=== PATIENT | male | born 1960 | race Caucasian/White ===

== ENCOUNTER → 2016-12-26 | Day surgery (SDC) | payer BC ==
[~2016-12-26] MED LIST: ASPIR; FENTANYL PF 100 MCG/2 ML VIAL. IV PRN; HYDROMORPHONE 2 MG/ML VIAL. IV PRN; INSU100C SQ; INSU100V13 SQ; IV RINGERS,LACTATED 1000ML 1,000 ML IV SCH; LIDOCAINE 1% 1 ML SYRINGE. ID PRN; LIDOCAINE 2% PF Vial for OR 5 ML VIAL. ONE; MORPHINE SULFATE 2 MG/ML DISP.SYRIN. IV PRN; ONDANSETRON PF 4 MG/2 ML VIAL. IV PRN; PROCHLORPERAZINE 10 MG/2 ML VIAL. IV PRN; PROPOFOL 40 ML IV ONE
[2016-12-26 07:59] VITALS: BP 122/72
== END ==
LOC: ENDOS 05:54
PROVIDERS: ATTEND Internal Medicine Gastroenterology
DX: K64.0 First degree hemorrhoids (principal); E11.9 Type 2 diabetes mellitus without complications; F17.210 Nicotine dependence, cigarettes, uncomplicated; Z72.89 Other problems related to lifestyle; Z79.82 Long term (current) use of aspirin; Z90.49 Acquired absence of other specified parts of digestive tract
CPT/HCPCS: 45378; 82947; J2704

== ENCOUNTER 2017-04-19 08:08 | Inpatient (IN) | payer BC ==
[~2017-04-19] VITALS: Ht 167.6 cm; Wt 53.1 kg
[2017-04-19] VITALS (17 sets, daily range): BP systolic 116–153; BP diastolic 53–78
[~2017-04-19 08:08] MED LIST changes: -FENTANYL PF 100 MCG/2 ML VIAL. IV PRN; -HYDROMORPHONE 2 MG/ML VIAL. IV PRN; -IV RINGERS,LACTATED 1000ML 1,000 ML IV SCH; -LIDOCAINE 1% 1 ML SYRINGE. ID PRN; -LIDOCAINE 2% PF Vial for OR 5 ML VIAL. ONE; -MORPHINE SULFATE 2 MG/ML DISP.SYRIN. IV PRN; -ONDANSETRON PF 4 MG/2 ML VIAL. IV PRN; -PROCHLORPERAZINE 10 MG/2 ML VIAL. IV PRN; -PROPOFOL 40 ML IV ONE
[2017-04-19] MEDS: PANTOPRAZOLE SODIUM IV 80 MG in IV NORMAL SALINE 100ML 100 ML IV SCH ×2 (09:15→16:56)
[2017-04-19] MEDS ORDERED: IV NORMAL SALINE 1000ML BAG 1,000 ML IV SCH (09:30)
[2017-04-19] MEDS ORDERED: INSULIN REGULAR VIAL 150 UNIT in 0.9 % SODIUM CHLORIDE 150ML 150 ML IV PRN (09:30)
[2017-04-19] MEDS ORDERED: POTASSIUM CHLORIDE 10MEQ 100 ML IV PRN ×3 (09:30)
[2017-04-19 10:00] LABS: BASE EXCESS COOX -20 mmol/L (-3-3); CARBON MONOXIDE 0.3 % (0.0-1.9); HCO3 COOX 7 mmol/L (21-28); METHEMOGLOBIN 0.4 % (0.0-1.9); OXYHEMOGLOBIN 95.1 %; PCO2 COOX 22 mmHg (35-46); PO2 COOX 91 mmHg (75-108); SAT O2 COOX 96 % (92-99); TOTAL HEMOGLOBIN 14.7 g/dL
[2017-04-19 10:01] LABS: PH COOX 7.15 (7.35-7.45)
[2017-04-19 10:02] LABS: FIO2 COOX 21%
--- NOTE | 2017-04-19 10:08 | EKG ---
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
[2017-04-19] MEDS ORDERED: INSU100V13 SQ (10:27)
[2017-04-19] MEDS ORDERED: ASPI-482 PO (10:27)
[2017-04-19] MEDS ORDERED: INSU100C SQ (10:27)
--- NOTE | 2017-04-19 10:42 | PDOC2 ---
CONSULT Date of Consult Date of Consult DATE: 04/19/17 TIME: 10:42 Reason for Consult Reason for Consult: Chest pain Referring Physician Referring Physician: Dr. Villagran Identification/Chief Complaint Chief Complaint Nausea, vomiting and chest pain Source Source: Caregiver, Chart review History of Present Illness Reason for Visit: 56-year-old male initially presented to [facility] for nausea, vomiting and diarrhea and transferred to [facility] for further management. We have been consulted for chest pain. Patient is presently very somnolent probably from sedation and hence cannot give any meaningful history. Poor his spouse, patient started having nausea and vomiting yesterday morning and later in the day started complaining of chest pain not related to exertion. He does not have any previous history of coronary artery disease. He did not have any palpitations or syncope. Past Medical History Past Medical History Diabetes mellitus Past Surgical History Past Surgical History Appendectomy Family History Family History Negative for premature coronary artery disease Social History Social History Patient smokes one pack of cigarettes daily and has history of moderate intake of alcohol on a regular basis. No history of drug abuse. Current Medications Current Medications Current Medications Sodium Chloride 1,000 ml @ 250 mls/hr Q4H IV Last administered on 04/19/17 09 :44; Start 04/19/17 at 09:30 Insulin Human Regular 150 unit/ Sodium Chloride 151.5 ml @ 0 mls/hr CONT PRN PRN IV PER PROTOCOL Last administered on 04/19/17 09:44; Start 04/19/17 at 09: 30 Potassium Chloride 100 ml @ 100 mls/hr PRN Q1HR PRN IV SEE COMMENTS; Start at 09:30 Potassium Chloride 100 ml @ 100 mls/hr PRN Q1HR PRN IV SEE COMMENTS; Start at 09:30 Potassium Chloride 100 ml @ 100 mls/hr PRN Q1HR PRN IV SEE COMMENTS; Start at 09:30 Pantoprazole Sodium 80 mg/ Sodium Chloride 100 ml @ 10 mls/hr Q10H IV Last administered on 04/19/17 09:15; Start 04/19/17 at 09:45 Active Scripts Active Reported Aspir 81 (Aspirin) 81 Mg Tablet. 1 Tab PO DAILY Humalog (Insulin Lispro) 100 Unit/1 Ml Cartridge 3-4 Unit SQ DAILYWLUN Levemir (Insulin Detemir) 100 Unit/1 Ml Vial 22 Unit SQ QHS Allergies Allergies: Coded Allergies: pseudoephedrine (Verified Allergy, Severe, 04/19/17) facial swelling ROS Review of System Cannot be obtained since patient is not a good historian at this time from sedation Physical Exam General: Other (somnolent) HEENT: Atraumatic, PERRLA Lungs: Clear to auscultation Heart: Regular rate, Rubs (probable pericardial rub) Abdomen: Soft, No tenderness Extremities: No edema Labs Labs Laboratory Tests Test 04/19/17 09:27 04/19/17 09:38 O2 Saturation 96 % (92-99) Arterial Blood pH 7.15 (7.35-7.45) Arterial Blood pCO2 at Patient Temp 22 mmHg (35-46) Arterial Blood pO2 at Patient Temp 91 mmHg (75-108) Arterial Blood HCO3 7 mmol/L (21-28) Arterial Blood Base Excess -20 mmol/L (-3-3) Oxyhemoglobin 95.1 % Methemoglobin 0.4 % (0.0-1.9) Carbon Monoxide, Quantitative 0.3 % (0.0-1.9) FiO2 21% Glucose (Fingerstick) 402 mg/dL (70-99) Laboratory Tests Test 04/19/17 09:27 04/19/17 09:38 O2 Saturation 96 % (92-99) Arterial Blood pH 7.15 (7.35-7.45) Arterial Blood pCO2 at Patient Temp 22 mmHg (35-46) Arterial Blood pO2 at Patient Temp 91 mmHg (75-108) Arterial Blood HCO3 7 mmol/L (21-28) Arterial Blood Base Excess -20 mmol/L (-3-3) Oxyhemoglobin 95.1 % Methemoglobin 0.4 % (0.0-1.9) Carbon Monoxide, Quantitative 0.3 % (0.0-1.9) FiO2 21% Glucose (Fingerstick) 402 mg/dL (70-99) Assessment/Plan Assessment/Plan 1. Chest pain with atypical features, most probably GI etiology. Troponin levels indeterminate. Abnormal EKG with peaked T waves most probably secondary to hyperkalemia. Doubt ACS. We will check 2-D echo to assess LV systolic function and rule out wall motion abnormalities. We will also rule out pericardial effusion due to pericardial rub heard on auscultation. Further ischemic workup in the formal stress test could be considered as an outpatient. 2. Diabetic ketoacidosis, possible acute pancreatitis: Workup and treatment per GI team 3. Hyperkalemia, acute renal insufficiency: per IM Thank you for your consultation TALIB PEREZ MD April 19, 2017 10:42
[2017-04-19 10:49] LABS: BILIRUBIN,URINE NEGATIVE (NEG); GLUCOSE,URINE >=1000 mg/dL (NEG); NITRITE,URINE NEGATIVE (NEG); PROTEIN,URINE NEGATIVE (NEG-TRACE); UROBILINOGEN,URINE 0.2 mg/dL (0.2 mg/dL)
[2017-04-19 10:50] LABS: BASO # 0.1 x10^3/uL (0.0-0.2); BASO % 1 % (0-3); EOS % 0 % (0-3); HEMOGLOBIN 14.6 g/dL (13.0-17.5); LYMPH # 0.9 x10^3/uL (1.0-4.8); LYMPH % 4 % (24-48); MEAN CORPUSCULAR HEMOGLOBIN 34 pg (25-35); MEAN CORPUSCULAR HGB CONC 33 g/dL (31-37); MEAN CORPUSCULAR VOLUME 103 fL (79-100); MONO % 3 % (0-9); NEUT % 93 % (31-73); PLATELET COUNT 261 x10^3/uL (140-400); RED BLOOD COUNT 4.28 x10^6/uL (4.30-5.70); RED CELL DISTRIBUTION WIDTH 13.7 % (11.5-14.5); WHITE BLOOD COUNT 21.8 x10^3/uL (4.0-11.0)
--- NOTE | 2017-04-19 11:00 | PDOC2 ---
CONSULT Date of Consult Date of Consult DATE: 04/19/17 TIME: 10:48 Reason for Consult Reason for Consult: "Hematemesis" Referring Physician Referring Physician: Dr. Villagran Source Source: Caregiver, Chart review History of Present Illness Reason for Visit: 56 y/o male transferred from [facility] where presented in DKA. There had "pink-tinged " emesis which was gastroccult positive. Clots or coffee-ground emesis not described there, here or at home by who gives history as patient is somnolent and not answering questions currently. No prior issues with heartburn , dysphagia, PUD, GB, liver or pancreatic issues. Smoker. Daily alcohol, ~ 3oz. Daily ASA 81mg/rare NSAIDS. Chronic issues with constipation; colonoscopy by Dr. Gay earlier this year historically normal. No diarrhea, overt bleeding. Ongoing weight loss, though suspect blood sugar control is poor. Unable to obtain GI family history. Past Medical History Endocrine: Diabetes (type I/insulin-dependent) Past Surgical History Past Surgical History: Appendectomy Family History Family History Not obtainable from patient. Social History Social History Smokes, drinks daily. Negative tox screen at [facility]. Current Medications Current Medications Current Medications Sodium Chloride 1,000 ml @ 250 mls/hr Q4H IV Last administered on 04/19/17 09 :44; Start 04/19/17 at 09:30 Insulin Human Regular 150 unit/ Sodium Chloride 151.5 ml @ 0 mls/hr CONT PRN PRN IV PER PROTOCOL Last administered on 04/19/17 09:44; Start 04/19/17 at 09: 30 Potassium Chloride 100 ml @ 100 mls/hr PRN Q1HR PRN IV SEE COMMENTS; Start at 09:30 Potassium Chloride 100 ml @ 100 mls/hr PRN Q1HR PRN IV SEE COMMENTS; Start at 09:30 Potassium Chloride 100 ml @ 100 mls/hr PRN Q1HR PRN IV SEE COMMENTS; Start at 09:30 Pantoprazole Sodium 80 mg/ Sodium Chloride 100 ml @ 10 mls/hr Q10H IV Last administered on 04/19/17 09:15; Start 04/19/17 at 09:45 Active Scripts Active Reported Aspir 81 (Aspirin) 81 Mg Tablet. 1 Tab PO DAILY Humalog (Insulin Lispro) 100 Unit/1 Ml Cartridge 3-4 Unit SQ DAILYWLUN Levemir (Insulin Detemir) 100 Unit/1 Ml Vial 22 Unit SQ QHS Allergies Allergies: Coded Allergies: No Known Drug Allergies (Unverified , 12/26/16) ROS Review of System Not obtainable from patient due to mental status. Physical Exam General: Other (Somnolent/non-verbal currently) Lungs: Clear to auscultation Heart: Regular rate, Normal S1, Normal S2, No murmurs Abdomen: Normal bowel sounds, Soft, No hepatosplenomegaly, No masses, Other ( grimaces with epigastric palpation) Extremities: No cyanosis, No edema Skin: No significant lesion Neuro: Strength at 5/5 X4 ext, Normal tone, Sensation intact, Cranial nerves 3- 12 NL, Reflexes 2+ Psych/Mental Status: Other (arouse, but non-verbal) MUSCULOSKELETAL: No deformity, No swelling Labs Labs Laboratory Tests Test 04/19/17 09:27 04/19/17 09:38 O2 Saturation 96 % (92-99) Arterial Blood pH 7.15 (7.35-7.45) Arterial Blood pCO2 at Patient Temp 22 mmHg (35-46) Arterial Blood pO2 at Patient Temp 91 mmHg (75-108) Arterial Blood HCO3 7 mmol/L (21-28) Arterial Blood Base Excess -20 mmol/L (-3-3) Oxyhemoglobin 95.1 % Methemoglobin 0.4 % (0.0-1.9) Carbon Monoxide, Quantitative 0.3 % (0.0-1.9) FiO2 21% Glucose (Fingerstick) 402 mg/dL (70-99) Laboratory Tests Test 04/19/17 09:27 04/19/17 09:38 O2 Saturation 96 % (92-99) Arterial Blood pH 7.15 (7.35-7.45) Arterial Blood pCO2 at Patient Temp 22 mmHg (35-46) Arterial Blood pO2 at Patient Temp 91 mmHg (75-108) Arterial Blood HCO3 7 mmol/L (21-28) Arterial Blood Base Excess -20 mmol/L (-3-3) Oxyhemoglobin 95.1 % Methemoglobin 0.4 % (0.0-1.9) Carbon Monoxide, Quantitative 0.3 % (0.0-1.9) FiO2 21% Glucose (Fingerstick) 402 mg/dL (70-99) Assessment/Plan Assessment/Plan IMP: 1. "Hematemesis". Historically seems insignificant. Labs at [facility] not suggestive of meaningful bleed either. Probably induced by repeated emesis/ retching, but not enough to consider even M-W syndrome. 2. Chronic constipation/negative recent colonoscopy--likely idiopathic. REC: 1. Continue PPI 2. Treat DKA 3. Observe for any meaningful bleeding. Other pending. Thank you for allowing me to assist in the care of this patient. Please call if questions. SOFIA STALLWORTH MD April 19, 2017 10:59
[2017-04-19 11:06] LABS: ALBUMIN 3.9 g/dL (3.4-5.0); CALCIUM 8.6 mg/dL (8.5-10.1); CREATININE 1.7 mg/dL (0.7-1.3); DIRECT BILIRUBIN 0.2 mg/dL (0.0-0.2); GFR 42.1; MAGNESIUM 2.5 mg/dL (1.8-2.4); TOTAL BILIRUBIN 0.6 mg/dL (0.2-1.0); TOTAL PROTEIN 7.5 g/dL (6.4-8.2)
[2017-04-19 11:13] LABS: BACTERIA,URINE 0 /HPF (0-FEW); RBC,URINE OCC /HPF (0-2); SQUAMOUS EPITHELIAL CELL,UR FEW /LPF; WBC,URINE 0 /HPF (0-4)
[2017-04-19 12:47] LABS: PLT ESTIMATE ADEQUATE (ADEQUATE)
[2017-04-19 12:50] LABS: CREATINE KINASE 38 U/L (39-308)
[2017-04-19] MEDS: IV DEXTROSE 5% - 0.9 % NACL 1,000 ML IV SCH ×3 (13:12→21:00)
[2017-04-19] MEDS ORDERED: ENOXAPARIN 40 MG/0.4 ML SYRINGE. SQ SCH (14:00)
[2017-04-19] MEDS ORDERED: MORPHINE SULFATE 2 MG/ML DISP.SYRIN. IV PRN (14:00)
[2017-04-19] MEDS ORDERED: ACETAMINOPHEN 325 MG TABLET. PO PRN (14:00)
[2017-04-19] MEDS ORDERED: ONDANSETRON PF 4 MG/2 ML VIAL. IV PRN (14:00)
[2017-04-19] MEDS ORDERED: traMADol 50 MG TABLET PO PRN (14:00)
[2017-04-19] MEDS ORDERED: hydrALAZINE 20 MG/ML VIAL. IVP PRN (14:00)
[2017-04-19] MEDS ORDERED: DOCUSATE SODIUM 100 MG CAPSULE. PO PRN (14:00)
--- NOTE | 2017-04-19 14:01 | PDOC1 ---
History and Physical Date of Admission Date of Admission 04/19/17 Identification/Chief Complaint Chief Complaint abd pain, N/V Problems: Source Source: Caregiver, Chart review History of Present Illness History of Present Illness 56yo M, dm2 ON insulin, was sent from [facility] for pancreatitis, DKA. pT IS mild lethargic now, contribute history. She said pt takes insulin daily, not sure finger stick tho.Pt started to feel abd pain, N/V many times yesterday, the vomitted fluid became pinkish later. They came to [facility] today, pt was found DKA, PANCREAtitis, metabolic acidosis, sent here. Pt got one dose ativan in [facility]. He also c/o some chest pain in [facility]. PT drinks 6ounces of vidka daily. Pt is not willing to quit smoking or drinking as per , no h/o gallstone or pancreatitis, but has some " stomach problem" wo details. Past Medical History Endocrine: Diabetes (type I/insulin-dependent) Past Surgical History Past Surgical History: Appendectomy Family History Family History: Diabetes Social History Smoke: <1 pack per day ALCOHOL: heavy Drugs: None Current Medications Current Medications Current Medications Medications (Trade) Dose Ordered Sig/Lilly Start Time Stop Time Status Last Admin Dose Admin Dextrose/Sodium Chloride 1,000 ml @ 250 mls/hr Q4H 04/19/17 13:00 04/19/17 13:12 250 MLS/HR Insulin Human Regular 150 unit/ Sodium Chloride 151.5 ml @ 0 mls/hr CONT PRN PRN 04/19/17 09:30 04/19/17 09:44 6.8 MLS/HR Pantoprazole Sodium 80 mg/ Sodium Chloride 100 ml @ 10 mls/hr Q10H 04/19/17 09:45 04/19/17 09:15 10 MLS/HR Potassium Chloride 100 ml @ 100 mls/hr PRN Q1HR PRN 04/19/17 09:30 Sodium Chloride 1,000 ml @ 250 mls/hr Q4H 04/19/17 09:30 04/19/17 12:59 DC 04/19/17 09:44 250 MLS/HR Allergies Allergies Allergies Coded Allergies Type Severity Reaction Last Updated Verified pseudoephedrine Allergy Severe 04/19/17 Yes ROS Review of System CONSTITUTIONAL: No fever or chills EYES: No recent changes SKIN: No rash or itching CARDIOVASCULAR: No chest pain, syncope, palpitations, or edema RESPIRATORY: No SOB or cough GASTROINTESTINAL: No nausea, vomiting or abdominal pain NEUROLOGICAL: No headaches or weakness ENDOCRINE: No cold or heat intolerance GENITOURINARY: No urgency or frequency of urination MUSCULOSKELETAL: No back pain or joint pain LYMPHATICS: No enlarged lymph nodes PSYCHIATRIC: No anxiety or depression Physical Exam Physical Exam GEN.: lethargic, arousable, answer some questions, aaox3, squeeze bl hands. HEENT: Head is normocephalic, atraumatic NECK: Supple. LUNGS: Clear to auscultation. HEART: RRR, S1, S2 present. Peripheral pulses intact ABDOMEN: Soft, nontender. Positive bowel sounds. EXTREMITIES: Without any cyanosis. NEUROLOGIC: Normal speech, normal tone PSYCHIATRIC: Normal affect, normal mood. SKIN: No ulcerations Vitals Vitals Vital Signs Date Time Temp Pulse Resp B/P (MAP) Pulse Ox O2 Delivery O2 Flow Rate FiO2 04/19/17 13:00 98 13 151/70 (97) 99 Room Air 04/19/17 09:15 97.5 97.5 Labs Labs Laboratory Tests Test 04/19/17 09:27 04/19/17 09:38 04/19/17 10:25 04/19/17 10:30 O2 Saturation 96 % (92-99) Arterial Blood pH 7.15 (7.35-7.45) Arterial Blood pCO2 at Patient Temp 22 mmHg (35-46) Arterial Blood pO2 at Patient Temp 91 mmHg (75-108) Arterial Blood HCO3 7 mmol/L (21-28) Arterial Blood Base Excess -20 mmol/L (-3-3) Oxyhemoglobin 95.1 % Methemoglobin 0.4 % (0.0-1.9) Carbon Monoxide, Quantitative 0.3 % (0.0-1.9) FiO2 21% Glucose (Fingerstick) 402 mg/dL (70-99) Urine Collection Type Unknown Urine Color Yellow Urine Clarity Clear Urine pH 5.0 Urine Specific [place] 1.025 Urine Protein Negative mg/dL (NEG-TRACE) Urine Glucose (UA) >=1000 mg/dL (NEG) Urine Ketones (Stick) >=80 mg/dL (NEG) Urine Blood Negative (NEG) Urine Nitrite Negative (NEG) Urine Bilirubin Negative (NEG) Urine Urobilinogen Dipstick 0.2 mg/dL (0.2 mg/dL) Urine Leukocyte Esterase Negative (NEG) Urine RBC Occ /HPF (0-2) Urine WBC 0 /HPF (0-4) Urine Squamous Epithelial Cells Few /LPF Urine Bacteria 0 /HPF (0-FEW) White Blood Count 21.8 x10^3/uL (4.0-11.0) Red Blood Count 4.28 x10^6/uL (4.30-5.70) Hemoglobin 14.6 g/dL (13.0-17.5) Hematocrit 44.0 % (39.0-53.0) Mean Corpuscular Volume 103 fL (79-100) Mean Corpuscular Hemoglobin 34 pg (25-35) Mean Corpuscular Hemoglobin Concent 33 g/dL (31-37) Red Cell Distribution Width 13.7 % (11.5-14.5) Platelet Count 261 x10^3/uL (140-400) Neutrophils (%) (Auto) 93 % (31-73) Lymphocytes (%) (Auto) 4 % (24-48) Monocytes (%) (Auto) 3 % (0-9) Eosinophils (%) (Auto) 0 % (0-3) Basophils (%) (Auto) 1 % (0-3) Neutrophils # (Auto) 20.2 x10^3uL (1.8-7.7) Lymphocytes # (Auto) 0.9 x10^3/uL (1.0-4.8) Monocytes # (Auto) 0.5 x10^3/uL (0.0-1.1) Eosinophils # (Auto) 0.0 x10^3/uL (0.0-0.7) Basophils # (Auto) 0.1 x10^3/uL (0.0-0.2) Segmented Neutrophils % 85 % (35-66) Lymphocytes % 11 % (24-48) Monocytes % 4 % (0-10) Platelet Estimate Adequate (ADEQUATE) Sodium Level 137 mmol/L (136-145) Potassium Level 5.0 mmol/L (3.5-5.1) Chloride Level 100 mmol/L (98-107) Carbon Dioxide Level 9 mmol/L (21-32) Anion Gap 28 (6-14) Blood Urea Nitrogen 34 mg/dL (8-26) Creatinine 1.7 mg/dL (0.7-1.3) Estimated GFR (Cockcroft-Gault) 42.1 Glucose Level 428 mg/dL (70-99) Calcium Level 8.6 mg/dL (8.5-10.1) Phosphorus Level 4.0 mg/dL (2.6-4.7) Magnesium Level 2.5 mg/dL (1.8-2.4) Total Bilirubin 0.6 mg/dL (0.2-1.0) Direct Bilirubin 0.2 mg/dL (0.0-0.2) Aspartate Amino Transf (AST/SGOT) 17 U/L (15-37) Alanine Aminotransferase (ALT/SGPT) 23 U/L (16-63) Alkaline Phosphatase 104 U/L (46-116) Total Protein 7.5 g/dL (6.4-8.2) Albumin 3.9 g/dL (3.4-5.0) Amylase Level 549 U/L (25-115) Lipase 2850 U/L (73-393) Test 04/19/17 10:46 04/19/17 12:05 Glucose (Fingerstick) 389 mg/dL (70-99) Creatine Kinase 38 U/L (39-308) Creatine Kinase MB (Mass) 1.0 ng/mL (0.0-3.6) Creatine Kinase MB Relative Index % (0-4) Troponin I Quantitative < 0.017 ng/mL (0.000-0.055) Laboratory Tests Test 04/19/17 09:27 04/19/17 09:38 04/19/17 10:25 04/19/17 10:30 O2 Saturation 96 % (92-99) Arterial Blood pH 7.15 (7.35-7.45) Arterial Blood pCO2 at Patient Temp 22 mmHg (35-46) Arterial Blood pO2 at Patient Temp 91 mmHg (75-108) Arterial Blood HCO3 7 mmol/L (21-28) Arterial Blood Base Excess -20 mmol/L (-3-3) Oxyhemoglobin 95.1 % Methemoglobin 0.4 % (0.0-1.9) Carbon Monoxide, Quantitative 0.3 % (0.0-1.9) FiO2 21% Glucose (Fingerstick) 402 mg/dL (70-99) Urine Collection Type Unknown Urine Color Yellow Urine Clarity Clear Urine pH 5.0 Urine Specific [place] 1.025 Urine Protein Negative mg/dL (NEG-TRACE) Urine Glucose (UA) >=1000 mg/dL (NEG) Urine Ketones (Stick) >=80 mg/dL (NEG) Urine Blood Negative (NEG) Urine Nitrite Negative (NEG) Urine Bilirubin Negative (NEG) Urine Urobilinogen Dipstick 0.2 mg/dL (0.2 mg/dL) Urine Leukocyte Esterase Negative (NEG) Urine RBC Occ /HPF (0-2) Urine WBC 0 /HPF (0-4) Urine Squamous Epithelial Cells Few /LPF Urine Bacteria 0 /HPF (0-FEW) White Blood Count 21.8 x10^3/uL (4.0-11.0) Red Blood Count 4.28 x10^6/uL (4.30-5.70) Hemoglobin 14.6 g/dL (13.0-17.5) Hematocrit 44.0 % (39.0-53.0) Mean Corpuscular Volume 103 fL (79-100) Mean Corpuscular Hemoglobin 34 pg (25-35) Mean Corpuscular Hemoglobin Concent 33 g/dL (31-37) Red Cell Distribution Width 13.7 % (11.5-14.5) Platelet Count 261 x10^3/uL (140-400) Neutrophils (%) (Auto) 93 % (31-73) Lymphocytes (%) (Auto) 4 % (24-48) Monocytes (%) (Auto) 3 % (0-9) Eosinophils (%) (Auto) 0 % (0-3) Basophils (%) (Auto) 1 % (0-3) Neutrophils # (Auto) 20.2 x10^3uL (1.8-7.7) Lymphocytes # (Auto) 0.9 x10^3/uL (1.0-4.8) Monocytes # (Auto) 0.5 x10^3/uL (0.0-1.1) Eosinophils # (Auto) 0.0 x10^3/uL (0.0-0.7) Basophils # (Auto) 0.1 x10^3/uL (0.0-0.2) Segmented Neutrophils % 85 % (35-66) Lymphocytes % 11 % (24-48) Monocytes % 4 % (0-10) Platelet Estimate Adequate (ADEQUATE) Sodium Level 137 mmol/L (136-145) Potassium Level 5.0 mmol/L (3.5-5.1) Chloride Level 100 mmol/L (98-107) Carbon Dioxide Level 9 mmol/L (21-32) Anion Gap 28 (6-14) Blood Urea Nitrogen 34 mg/dL (8-26) Creatinine 1.7 mg/dL (0.7-1.3) Estimated GFR (Cockcroft-Gault) 42.1 Glucose Level 428 mg/dL (70-99) Calcium Level 8.6 mg/dL (8.5-10.1) Phosphorus Level 4.0 mg/dL (2.6-4.7) Magnesium Level 2.5 mg/dL (1.8-2.4) Total Bilirubin 0.6 mg/dL (0.2-1.0) Direct Bilirubin 0.2 mg/dL (0.0-0.2) Aspartate Amino Transf (AST/SGOT) 17 U/L (15-37) Alanine Aminotransferase (ALT/SGPT) 23 U/L (16-63) Alkaline Phosphatase 104 U/L (46-116) Total Protein 7.5 g/dL (6.4-8.2) Albumin 3.9 g/dL (3.4-5.0) Amylase Level 549 U/L (25-115) Lipase 2850 U/L (73-393) Test 04/19/17 10:46 04/19/17 12:05 Glucose (Fingerstick) 389 mg/dL (70-99) Creatine Kinase 38 U/L (39-308) Creatine Kinase MB (Mass) 1.0 ng/mL (0.0-3.6) Creatine Kinase MB Relative Index % (0-4) Troponin I Quantitative < 0.017 ng/mL (0.000-0.055) VTE Prophylaxis Ordered VTE Prophylaxis Devices: Yes VTE Pharmacological Prophylaxi: Yes Assessment/Plan Assessment/Plan 1. N/V, abd pain with pancreatitis, 2/2 ALCOHOL likely 2. DKA with 1 3. metabolic acidosis with 2 4. chest pain, 2/2 1 likely 5. ANITHA , vasomotor, dehydration 6. heavy drinker 7. tobaccoism 8. dm2 on insulin 9. possible GIB with N/V 10 . chronic constipation plan: GI, CARD consult echo as per card protonix ip as per card DKA protocol ICU care labs q4h talked to for 10min at bedside check hba1c check abd US critical care 40min FIDELINA VILA MD April 19, 2017 14:01
[2017-04-19 14:37] LABS: BARBITURATES NEG (NEG); BENZODIAZEPINES NEG (NEG); CANNABINOIDS NEG (NEG); COCAINE NEG (NEG); METHADONE NEG (NEG); OPIATES NEG (NEG); PHENCYCLIDINE NEG (NEG)
[2017-04-19 15:29] LABS: CALCIUM 8.4 mg/dL (8.5-10.1); CREATININE 1.4 mg/dL (0.7-1.3); GFR 52.6; MAGNESIUM 2.2 mg/dL (1.8-2.4); PHOSPHORUS 1.4 mg/dL (2.6-4.7)
[2017-04-19] MEDS ORDERED: SODIUM PHOSPHATE 15 MMOL in IV DEXTROSE 5% 250 ML IV ONE (16:00)
--- NOTE | 2017-04-19 16:32 | ACF ---
Admission Forms Criteria PANCREATITIS Clinical Indications for Admission to Inpatient Care (Place 'X' for any and all applicable criteria): Admission is indicated for 1 or more of the following (1)(2)(3)(4): [X]I. Acute pancreatitis[A] as indicated by 2 or MORE of the following: [X]a) Abdominal pain (eg, epigastric, left upper quadrant) [X]b) Serum amylase or serum lipase greater than 3 times the upper limit of normal [ ]c) Characteristic findings from abdominal imaging (eg, pancreatic inflammation, pancreatic necrosis, peripancreatic fluid collection)[B] [ ]II. Pancreatitis (acute or chronic ) requiring inpatient care as indicated by 1 or more of the following [ ]a) Inability to maintain oral hydration Hypoxemia [ ]b) Evidence of infection (eg, fever, peripancreatic abscess) [ ]c) Severe pain requiring acute inpatient management [ ]d) Hemodynamic instability [ ]e) Hypoxemia [ ]f) Acute renal failure [ ]g) Severe electrolyte abnormalities Extended stay beyond goal length of stay may be needed for (1)(11) [ ]a) Severe acute pancreatitis (10)(19) [ ]b) Persistent symptoms, ascites, or pleural effusion [ ]c) Abdominal compartment syndrome (10) [ ]d) Late complications [ ]e) Gallstones in gallbladder [ ]f) Acute renal failure (27) The original [facility] content created by [employer] has been revised. The portions of the content which have been revised are identified through the use of italic text or in bold,and [facility] has neither reviewed nor approved the modified material.All other unmodified content is copyright [facility] [employer]. Please see references footnoted in the original [facility] edition 2016 Admission Criteria Met?: Yes CARLOZ PAULINO April 19, 2017 16:32
[2017-04-19 18:36] LABS: CKMB MASS 0.8 ng/mL (0.0-3.6)
[2017-04-20] VITALS (15 sets, daily range): BP systolic 133–159; BP diastolic 69–83
[2017-04-20 00:38] LABS: CKMB MASS 0.6 ng/mL (0.0-3.6)
[2017-04-20] MEDS: IV DEXTROSE 5% - 0.9 % NACL 1,000 ML IV SCH ×2 (01:00→05:39)
[2017-04-20 01:12] LABS: CALCIUM 7.9 mg/dL (8.5-10.1); CREATININE 0.9 mg/dL (0.7-1.3); GFR 87.6; MAGNESIUM 2.1 mg/dL (1.8-2.4); PHOSPHORUS 2.7 mg/dL (2.6-4.7); POTASSIUM 3.2 mmol/L (3.5-5.1)
[2017-04-20] MEDS: POTASSIUM CHLORIDE 10MEQ 100 ML IV SCH ×4 (02:55→05:38)
[2017-04-20] MEDS: PANTOPRAZOLE SODIUM IV 80 MG in IV NORMAL SALINE 100ML 100 ML IV SCH (02:55)
[2017-04-20 06:12] LABS: BASO # 0.1 x10^3/uL (0.0-0.2); BASO % 1 % (0-3); EOS % 0 % (0-3); HEMATOCRIT 38.5 % (39.0-53.0); HEMOGLOBIN 12.7 g/dL (13.0-17.5); LYMPH # 1.3 x10^3/uL (1.0-4.8); LYMPH % 9 % (24-48); MEAN CORPUSCULAR HEMOGLOBIN 33 pg (25-35); MEAN CORPUSCULAR HGB CONC 33 g/dL (31-37); MEAN CORPUSCULAR VOLUME 101 fL (79-100); MONO % 5 % (0-9); NEUT % 85 % (31-73); PLATELET COUNT 213 x10^3/uL (140-400); RED BLOOD COUNT 3.83 x10^6/uL (4.30-5.70); RED CELL DISTRIBUTION WIDTH 13.1 % (11.5-14.5); WHITE BLOOD COUNT 14.5 x10^3/uL (4.0-11.0)
[2017-04-20 06:27] LABS: CALCIUM 7.6 mg/dL (8.5-10.1); CREATININE 0.9 mg/dL (0.7-1.3); GFR 87.6; MAGNESIUM 1.7 mg/dL (1.8-2.4); PHOSPHORUS 1.1 mg/dL (2.6-4.7); POTASSIUM 3.6 mmol/L (3.5-5.1)
[2017-04-20] MEDS ORDERED: SODIUM PHOSPHATE 20 MMOL in IV DEXTROSE 5% 250 ML IV ONE (07:00)
[2017-04-20] MEDS ORDERED: MAGNESIUM SULFATE 4GM 100 ML IV ONE (07:00)
--- NOTE | 2017-04-20 08:28 | PDOC ---
G I PROGRESS NOTE Subjective More awake today. Alert and conversant. Relates lots of epigastric pain, N, V on Thursday. Physical Exam Lungs clear. RRR Abdomen mildly tender in epigastrium. Not distended. Review of Relevant I have reviewed the following items raul (where applicable) has been applied. Labs Laboratory Tests Test 04/19/17 09:27 04/19/17 09:38 04/19/17 10:25 04/19/17 10:30 O2 Saturation 96 % (92-99) Arterial Blood pH 7.15 (7.35-7.45) Arterial Blood pCO2 at Patient Temp 22 mmHg (35-46) Arterial Blood pO2 at Patient Temp 91 mmHg (75-108) Arterial Blood HCO3 7 mmol/L (21-28) Arterial Blood Base Excess -20 mmol/L (-3-3) Oxyhemoglobin 95.1 % Methemoglobin 0.4 % (0.0-1.9) Carbon Monoxide, Quantitative 0.3 % (0.0-1.9) FiO2 21% Glucose (Fingerstick) 402 mg/dL (70-99) Urine Collection Type Unknown Urine Color Yellow Urine Clarity Clear Urine pH 5.0 Urine Specific [place] 1.025 Urine Protein Negative mg/dL (NEG-TRACE) Urine Glucose (UA) >=1000 mg/dL (NEG) Urine Ketones (Stick) >=80 mg/dL (NEG) Urine Blood Negative (NEG) Urine Nitrite Negative (NEG) Urine Bilirubin Negative (NEG) Urine Urobilinogen Dipstick 0.2 mg/dL (0.2 mg/dL) Urine Leukocyte Esterase Negative (NEG) Urine RBC Occ /HPF (0-2) Urine WBC 0 /HPF (0-4) Urine Squamous Epithelial Cells Few /LPF Urine Bacteria 0 /HPF (0-FEW) Urine Opiates Screen Neg (NEG) Urine Methadone Screen Neg (NEG) Urine Barbiturates Neg (NEG) Urine Phencyclidine Screen Neg (NEG) Urine Amphetamine/Methamphetamine Neg (NEG) Urine Benzodiazepines Screen Neg (NEG) Urine Cocaine Screen Neg (NEG) Urine Cannabinoids Screen Neg (NEG) Urine Ethyl Alcohol Neg (NEG) White Blood Count 21.8 x10^3/uL (4.0-11.0) Red Blood Count 4.28 x10^6/uL (4.30-5.70) Hemoglobin 14.6 g/dL (13.0-17.5) Hematocrit 44.0 % (39.0-53.0) Mean Corpuscular Volume 103 fL (79-100) Mean Corpuscular Hemoglobin 34 pg (25-35) Mean Corpuscular Hemoglobin Concent 33 g/dL (31-37) Red Cell Distribution Width 13.7 % (11.5-14.5) Platelet Count 261 x10^3/uL (140-400) Neutrophils (%) (Auto) 93 % (31-73) Lymphocytes (%) (Auto) 4 % (24-48) Monocytes (%) (Auto) 3 % (0-9) Eosinophils (%) (Auto) 0 % (0-3) Basophils (%) (Auto) 1 % (0-3) Neutrophils # (Auto) 20.2 x10^3uL (1.8-7.7) Lymphocytes # (Auto) 0.9 x10^3/uL (1.0-4.8) Monocytes # (Auto) 0.5 x10^3/uL (0.0-1.1) Eosinophils # (Auto) 0.0 x10^3/uL (0.0-0.7) Basophils # (Auto) 0.1 x10^3/uL (0.0-0.2) Segmented Neutrophils % 85 % (35-66) Lymphocytes % 11 % (24-48) Monocytes % 4 % (0-10) Platelet Estimate Adequate (ADEQUATE) Sodium Level 137 mmol/L (136-145) Potassium Level 5.0 mmol/L (3.5-5.1) Chloride Level 100 mmol/L (98-107) Carbon Dioxide Level 9 mmol/L (21-32) Anion Gap 28 (6-14) Blood Urea Nitrogen 34 mg/dL (8-26) Creatinine 1.7 mg/dL (0.7-1.3) Estimated GFR (Cockcroft-Gault) 42.1 Glucose Level 428 mg/dL (70-99) Calcium Level 8.6 mg/dL (8.5-10.1) Phosphorus Level 4.0 mg/dL (2.6-4.7) Magnesium Level 2.5 mg/dL (1.8-2.4) Total Bilirubin 0.6 mg/dL (0.2-1.0) Direct Bilirubin 0.2 mg/dL (0.0-0.2) Aspartate Amino Transf (AST/SGOT) 17 U/L (15-37) Alanine Aminotransferase (ALT/SGPT) 23 U/L (16-63) Alkaline Phosphatase 104 U/L (46-116) Total Protein 7.5 g/dL (6.4-8.2) Albumin 3.9 g/dL (3.4-5.0) Amylase Level 549 U/L (25-115) Lipase 2850 U/L (73-393) Test 04/19/17 10:46 04/19/17 11:51 04/19/17 12:05 04/19/17 12:53 Glucose (Fingerstick) 389 mg/dL (70-99) 278 mg/dL (70-99) 243 mg/dL (70-99) Creatine Kinase 38 U/L (39-308) Creatine Kinase MB (Mass) 1.0 ng/mL (0.0-3.6) Creatine Kinase MB Relative Index % (0-4) Troponin I Quantitative < 0.017 ng/mL (0.000-0.055) Test 04/19/17 13:53 04/19/17 14:55 04/19/17 16:01 04/19/17 17:04 Glucose (Fingerstick) 212 mg/dL (70-99) 229 mg/dL (70-99) 201 mg/dL (70-99) 172 mg/dL (70-99) Sodium Level 139 mmol/L (136-145) Potassium Level 4.0 mmol/L (3.5-5.1) Chloride Level 106 mmol/L (98-107) Carbon Dioxide Level 19 mmol/L (21-32) Anion Gap 14 (6-14) Blood Urea Nitrogen 27 mg/dL (8-26) Creatinine 1.4 mg/dL (0.7-1.3) Estimated GFR (Cockcroft-Gault) 52.6 Glucose Level 233 mg/dL (70-99) Calcium Level 8.4 mg/dL (8.5-10.1) Phosphorus Level 1.4 mg/dL (2.6-4.7) Magnesium Level 2.2 mg/dL (1.8-2.4) Test 04/19/17 18:00 04/19/17 18:15 04/19/17 19:15 04/19/17 20:08 Creatine Kinase 39 U/L (39-308) Creatine Kinase MB (Mass) 0.8 ng/mL (0.0-3.6) Creatine Kinase MB Relative Index 2.1 % (0-4) Troponin I Quantitative 0.018 ng/mL (0.000-0.055) Glucose (Fingerstick) 163 mg/dL (70-99) 115 mg/dL (70-99) 98 mg/dL (70-99) Test 04/19/17 21:07 04/19/17 22:00 04/19/17 23:02 04/19/17 23:44 Glucose (Fingerstick) 94 mg/dL (70-99) 95 mg/dL (70-99) 98 mg/dL (70-99) 124 mg/dL (70-99) Test 04/20/17 00:01 04/20/17 01:02 04/20/17 02:03 04/20/17 02:49 Sodium Level 144 mmol/L (136-145) Potassium Level 3.2 mmol/L (3.5-5.1) Chloride Level 111 mmol/L (98-107) Carbon Dioxide Level 20 mmol/L (21-32) Anion Gap 13 (6-14) Blood Urea Nitrogen 18 mg/dL (8-26) Creatinine 0.9 mg/dL (0.7-1.3) Estimated GFR (Cockcroft-Gault) 87.6 Glucose Level 128 mg/dL (70-99) Calcium Level 7.9 mg/dL (8.5-10.1) Phosphorus Level 2.7 mg/dL (2.6-4.7) Magnesium Level 2.1 mg/dL (1.8-2.4) Creatine Kinase 40 U/L (39-308) Creatine Kinase MB (Mass) 0.6 ng/mL (0.0-3.6) Creatine Kinase MB Relative Index 1.5 % (0-4) Troponin I Quantitative 0.017 ng/mL (0.000-0.055) Glucose (Fingerstick) 129 mg/dL (70-99) 141 mg/dL (70-99) 148 mg/dL (70-99) Test 04/20/17 03:50 04/20/17 04:43 04/20/17 06:04 04/20/17 06:05 Glucose (Fingerstick) 195 mg/dL (70-99) 186 mg/dL (70-99) 154 mg/dL (70-99) White Blood Count 14.5 x10^3/uL (4.0-11.0) Red Blood Count 3.83 x10^6/uL (4.30-5.70) Hemoglobin 12.7 g/dL (13.0-17.5) Hematocrit 38.5 % (39.0-53.0) Mean Corpuscular Volume 101 fL (79-100) Mean Corpuscular Hemoglobin 33 pg (25-35) Mean Corpuscular Hemoglobin Concent 33 g/dL (31-37) Red Cell Distribution Width 13.1 % (11.5-14.5) Platelet Count 213 x10^3/uL (140-400) Neutrophils (%) (Auto) 85 % (31-73) Lymphocytes (%) (Auto) 9 % (24-48) Monocytes (%) (Auto) 5 % (0-9) Eosinophils (%) (Auto) 0 % (0-3) Basophils (%) (Auto) 1 % (0-3) Neutrophils # (Auto) 12.3 x10^3uL (1.8-7.7) Lymphocytes # (Auto) 1.3 x10^3/uL (1.0-4.8) Monocytes # (Auto) 0.7 x10^3/uL (0.0-1.1) Eosinophils # (Auto) 0.0 x10^3/uL (0.0-0.7) Basophils # (Auto) 0.1 x10^3/uL (0.0-0.2) Sodium Level 144 mmol/L (136-145) Potassium Level 3.6 mmol/L (3.5-5.1) Chloride Level 113 mmol/L (98-107) Carbon Dioxide Level 20 mmol/L (21-32) Anion Gap 11 (6-14) Blood Urea Nitrogen 13 mg/dL (8-26) Creatinine 0.9 mg/dL (0.7-1.3) Estimated GFR (Cockcroft-Gault) 87.6 Glucose Level 160 mg/dL (70-99) Calcium Level 7.6 mg/dL (8.5-10.1) Phosphorus Level 1.1 mg/dL (2.6-4.7) Magnesium Level 1.7 mg/dL (1.8-2.4) Lipase 982 U/L (73-393) Test 04/20/17 07:00 04/20/17 08:12 Glucose (Fingerstick) 117 mg/dL (70-99) 172 mg/dL (70-99) Laboratory Tests Test 04/19/17 09:27 04/19/17 09:38 04/19/17 10:25 04/19/17 10:30 O2 Saturation 96 % (92-99) Arterial Blood pH 7.15 (7.35-7.45) Arterial Blood pCO2 at Patient Temp 22 mmHg (35-46) Arterial Blood pO2 at Patient Temp 91 mmHg (75-108) Arterial Blood HCO3 7 mmol/L (21-28) Arterial Blood Base Excess -20 mmol/L (-3-3) Oxyhemoglobin 95.1 % Methemoglobin 0.4 % (0.0-1.9) Carbon Monoxide, Quantitative 0.3 % (0.0-1.9) FiO2 21% Glucose (Fingerstick) 402 mg/dL (70-99) Urine Collection Type Unknown Urine Color Yellow Urine Clarity Clear Urine pH 5.0 Urine Specific [place] 1.025 Urine Protein Negative mg/dL (NEG-TRACE) Urine Glucose (UA) >=1000 mg/dL (NEG) Urine Ketones (Stick) >=80 mg/dL (NEG) Urine Blood Negative (NEG) Urine Nitrite Negative (NEG) Urine Bilirubin Negative (NEG) Urine Urobilinogen Dipstick 0.2 mg/dL (0.2 mg/dL) Urine Leukocyte Esterase Negative (NEG) Urine RBC Occ /HPF (0-2) Urine WBC 0 /HPF (0-4) Urine Squamous Epithelial Cells Few /LPF Urine Bacteria 0 /HPF (0-FEW) Urine Opiates Screen Neg (NEG) Urine Methadone Screen Neg (NEG) Urine Barbiturates Neg (NEG) Urine Phencyclidine Screen Neg (NEG) Urine Amphetamine/Methamphetamine Neg (NEG) Urine Benzodiazepines Screen Neg (NEG) Urine Cocaine Screen Neg (NEG) Urine Cannabinoids Screen Neg (NEG) Urine Ethyl Alcohol Neg (NEG) White Blood Count 21.8 x10^3/uL (4.0-11.0) Red Blood Count 4.28 x10^6/uL (4.30-5.70) Hemoglobin 14.6 g/dL (13.0-17.5) Hematocrit 44.0 % (39.0-53.0) Mean Corpuscular Volume 103 fL (79-100) Mean Corpuscular Hemoglobin 34 pg (25-35) Mean Corpuscular Hemoglobin Concent 33 g/dL (31-37) Red Cell Distribution Width 13.7 % (11.5-14.5) Platelet Count 261 x10^3/uL (140-400) Neutrophils (%) (Auto) 93 % (31-73) Lymphocytes (%) (Auto) 4 % (24-48) Monocytes (%) (Auto) 3 % (0-9) Eosinophils (%) (Auto) 0 % (0-3) Basophils (%) (Auto) 1 % (0-3) Neutrophils # (Auto) 20.2 x10^3uL (1.8-7.7) Lymphocytes # (Auto) 0.9 x10^3/uL (1.0-4.8) Monocytes # (Auto) 0.5 x10^3/uL (0.0-1.1) Eosinophils # (Auto) 0.0 x10^3/uL (0.0-0.7) Basophils # (Auto) 0.1 x10^3/uL (0.0-0.2) Segmented Neutrophils % 85 % (35-66) Lymphocytes % 11 % (24-48) Monocytes % 4 % (0-10) Platelet Estimate Adequate (ADEQUATE) Sodium Level 137 mmol/L (136-145) Potassium Level 5.0 mmol/L (3.5-5.1) Chloride Level 100 mmol/L (98-107) Carbon Dioxide Level 9 mmol/L (21-32) Anion Gap 28 (6-14) Blood Urea Nitrogen 34 mg/dL (8-26) Creatinine 1.7 mg/dL (0.7-1.3) Estimated GFR (Cockcroft-Gault) 42.1 Glucose Level 428 mg/dL (70-99) Calcium Level 8.6 mg/dL (8.5-10.1) Phosphorus Level 4.0 mg/dL (2.6-4.7) Magnesium Level 2.5 mg/dL (1.8-2.4) Total Bilirubin 0.6 mg/dL (0.2-1.0) Direct Bilirubin 0.2 mg/dL (0.0-0.2) Aspartate Amino Transf (AST/SGOT) 17 U/L (15-37) Alanine Aminotransferase (ALT/SGPT) 23 U/L (16-63) Alkaline Phosphatase 104 U/L (46-116) Total Protein 7.5 g/dL (6.4-8.2) Albumin 3.9 g/dL (3.4-5.0) Amylase Level 549 U/L (25-115) Lipase 2850 U/L (73-393) Test 04/19/17 10:46 04/19/17 11:51 04/19/17 12:05 04/19/17 12:53 Glucose (Fingerstick) 389 mg/dL (70-99) 278 mg/dL (70-99) 243 mg/dL (70-99) Creatine Kinase 38 U/L (39-308) Creatine Kinase MB (Mass) 1.0 ng/mL (0.0-3.6) Creatine Kinase MB Relative Index % (0-4) Troponin I Quantitative < 0.017 ng/mL (0.000-0.055) Test 04/19/17 13:53 04/19/17 14:55 04/19/17 16:01 04/19/17 17:04 Glucose (Fingerstick) 212 mg/dL (70-99) 229 mg/dL (70-99) 201 mg/dL (70-99) 172 mg/dL (70-99) Sodium Level 139 mmol/L (136-145) Potassium Level 4.0 mmol/L (3.5-5.1) Chloride Level 106 mmol/L (98-107) Carbon Dioxide Level 19 mmol/L (21-32) Anion Gap 14 (6-14) Blood Urea Nitrogen 27 mg/dL (8-26) Creatinine 1.4 mg/dL (0.7-1.3) Estimated GFR (Cockcroft-Gault) 52.6 Glucose Level 233 mg/dL (70-99) Calcium Level 8.4 mg/dL (8.5-10.1) Phosphorus Level 1.4 mg/dL (2.6-4.7) Magnesium Level 2.2 mg/dL (1.8-2.4) Test 04/19/17 18:00 04/19/17 18:15 04/19/17 19:15 04/19/17 20:08 Creatine Kinase 39 U/L (39-308) Creatine Kinase MB (Mass) 0.8 ng/mL (0.0-3.6) Creatine Kinase MB Relative Index 2.1 % (0-4) Troponin I Quantitative 0.018 ng/mL (0.000-0.055) Glucose (Fingerstick) 163 mg/dL (70-99) 115 mg/dL (70-99) 98 mg/dL (70-99) Test 04/19/17 21:07 04/19/17 22:00 04/19/17 23:02 04/19/17 23:44 Glucose (Fingerstick) 94 mg/dL (70-99) 95 mg/dL (70-99) 98 mg/dL (70-99) 124 mg/dL (70-99) Test 04/20/17 00:01 04/20/17 01:02 04/20/17 02:03 04/20/17 02:49 Sodium Level 144 mmol/L (136-145) Potassium Level 3.2 mmol/L (3.5-5.1) Chloride Level 111 mmol/L (98-107) Carbon Dioxide Level 20 mmol/L (21-32) Anion Gap 13 (6-14) Blood Urea Nitrogen 18 mg/dL (8-26) Creatinine 0.9 mg/dL (0.7-1.3) Estimated GFR (Cockcroft-Gault) 87.6 Glucose Level 128 mg/dL (70-99) Calcium Level 7.9 mg/dL (8.5-10.1) Phosphorus Level 2.7 mg/dL (2.6-4.7) Magnesium Level 2.1 mg/dL (1.8-2.4) Creatine Kinase 40 U/L (39-308) Creatine Kinase MB (Mass) 0.6 ng/mL (0.0-3.6) Creatine Kinase MB Relative Index 1.5 % (0-4) Troponin I Quantitative 0.017 ng/mL (0.000-0.055) Glucose (Fingerstick) 129 mg/dL (70-99) 141 mg/dL (70-99) 148 mg/dL (70-99) Test 04/20/17 03:50 04/20/17 04:43 04/20/17 06:04 04/20/17 06:05 Glucose (Fingerstick) 195 mg/dL (70-99) 186 mg/dL (70-99) 154 mg/dL (70-99) White Blood Count 14.5 x10^3/uL (4.0-11.0) Red Blood Count 3.83 x10^6/uL (4.30-5.70) Hemoglobin 12.7 g/dL (13.0-17.5) Hematocrit 38.5 % (39.0-53.0) Mean Corpuscular Volume 101 fL (79-100) Mean Corpuscular Hemoglobin 33 pg (25-35) Mean Corpuscular Hemoglobin Concent 33 g/dL (31-37) Red Cell Distribution Width 13.1 % (11.5-14.5) Platelet Count 213 x10^3/uL (140-400) Neutrophils (%) (Auto) 85 % (31-73) Lymphocytes (%) (Auto) 9 % (24-48) Monocytes (%) (Auto) 5 % (0-9) Eosinophils (%) (Auto) 0 % (0-3) Basophils (%) (Auto) 1 % (0-3) Neutrophils # (Auto) 12.3 x10^3uL (1.8-7.7) Lymphocytes # (Auto) 1.3 x10^3/uL (1.0-4.8) Monocytes # (Auto) 0.7 x10^3/uL (0.0-1.1) Eosinophils # (Auto) 0.0 x10^3/uL (0.0-0.7) Basophils # (Auto) 0.1 x10^3/uL (0.0-0.2) Sodium Level 144 mmol/L (136-145) Potassium Level 3.6 mmol/L (3.5-5.1) Chloride Level 113 mmol/L (98-107) Carbon Dioxide Level 20 mmol/L (21-32) Anion Gap 11 (6-14) Blood Urea Nitrogen 13 mg/dL (8-26) Creatinine 0.9 mg/dL (0.7-1.3) Estimated GFR (Cockcroft-Gault) 87.6 Glucose Level 160 mg/dL (70-99) Calcium Level 7.6 mg/dL (8.5-10.1) Phosphorus Level 1.1 mg/dL (2.6-4.7) Magnesium Level 1.7 mg/dL (1.8-2.4) Lipase 982 U/L (73-393) Test 04/20/17 07:00 04/20/17 08:12 Glucose (Fingerstick) 117 mg/dL (70-99) 172 mg/dL (70-99) Out of DKA. Lipase trending down. Medications Current Medications Sodium Chloride 1,000 ml @ 250 mls/hr Q4H IV Last administered on 04/19/17 09 :44; Start 04/19/17 at 09:30; Stop 04/19/17 at 12:59; Status DC Insulin Human Regular 150 unit/ Sodium Chloride 151.5 ml @ 0 mls/hr CONT PRN PRN IV PER PROTOCOL Last administered on 04/19/17 09:44; Start 04/19/17 at 09: 30 Potassium Chloride 100 ml @ 100 mls/hr PRN Q1HR PRN IV SEE COMMENTS; Start at 09:30 Potassium Chloride 100 ml @ 100 mls/hr PRN Q1HR PRN IV SEE COMMENTS; Start at 09:30 Potassium Chloride 100 ml @ 100 mls/hr PRN Q1HR PRN IV SEE COMMENTS; Start at 09:30 Pantoprazole Sodium 80 mg/ Sodium Chloride 100 ml @ 10 mls/hr Q10H IV Last administered on 04/20/17 02:55; Start 04/19/17 at 09:45 Dextrose/Sodium Chloride 1,000 ml @ 250 mls/hr Q4H IV Last administered on 05:39; Start 04/19/17 at 13:00 Aspirin (Ecotrin) 81 mg DAILY PO ; Start 04/20/17 at 09:00 Acetaminophen (Tylenol) 650 mg PRN Q6HRS PRN PO FEVER; Start 04/19/17 at 14:00 Ondansetron HCl (Zofran) 4 mg PRN Q6HRS PRN IV NAUSEA/VOMITING; Start 04/19/17 at 14:00 Morphine Sulfate 2 mg PRN Q2HR PRN IV PAIN Last administered on 04/19/17 23:04 ; Start 04/19/17 at 14:00 Tramadol HCl (Ultram) 50 mg PRN Q6HRS PRN PO PAIN; Start 04/19/17 at 14:00 Hydralazine HCl (Apresoline) 10 mg PRN Q4HRS PRN IVP ELEVATED BP, SEE COMMENTS ; Start 04/19/17 at 14:00 Docusate Sodium (Colace) 100 mg PRN DAILY PRN PO CONSTIPATION; Start 04/19/17 at 14:00 Enoxaparin Sodium (Lovenox 40mg Syringe) 40 mg Q24H SQ ; Start 04/19/17 at 14:00 ; Stop 04/19/17 at 14:00; Status DC Sodium Phosphate 15 mmol/Dextrose 255 ml @ 62.5 mls/hr 1X ONCE IV Last administered on 04/19/17 16:14; Start 04/19/17 at 16:00; Stop 04/19/17 at 20:04 ; Status DC Potassium Chloride 100 ml @ 100 mls/hr Q1H IV Last administered on 04/20/17 05:38; Start 04/20/17 at 03:00; Stop 04/20/17 at 06:59; Status DC Magnesium Sulfate/ Dextrose 100 ml @ 25 mls/hr 1X ONCE IV Last administered on 04/20/17 07:33; Start 04/20/17 at 07:00; Stop 04/20/17 at 10:59 Sodium Phosphate 20 mmol/Dextrose 256.6667 ml @ 64.167 m... 1X ONCE IV Last administered on 04/20/17 07:34; Start 04/20/17 at 07:00; Stop 04/20/17 at 10:59 Insulin Detemir (Levemir) 22 units QHS SQ ; Start 04/20/17 at 21:00; Status UNV Insulin Aspart (NovoLOG) 0-7 UNITS TIDWMEALS SQ ; Start 04/20/17 at 12:00; Status UNV Dextrose (Dextrose 50%-Water Syringe) 12.5 gm PRN Q15MIN PRN IV SEE COMMENTS; Start 04/20/17 at 08:30; Status UNV Insulin Detemir (Levemir) 11 units 1X ONCE SQ ; Start 04/20/17 at 08:30; Stop 04/20/17 at 08:31; Status UNV Active Scripts Active Reported Aspir 81 (Aspirin) 81 Mg Tablet. 1 Tab PO DAILY Humalog (Insulin Lispro) 100 Unit/1 Ml Cartridge 3-4 Unit SQ DAILYWLUN Levemir (Insulin Detemir) 100 Unit/1 Ml Vial 22 Unit SQ QHS Vitals/I & O Vital Sign - Last 24 Hours 04/19/17 04/19/17 04/19/17 04/19/17 09:15 09:15 09:30 09:45 Temp 97.5 97.5 Pulse 112 110 112 Resp 18 18 18 B/P (MAP) 139/64 (89) 116/53 (74) 140/61 (87) Pulse Ox 99 98 98 O2 Delivery Room Air Room Air Room Air Room Air 04/19/17 04/19/17 04/19/17 04/19/17 10:00 11:00 12:00 12:00 Pulse 112 110 106 Resp 16 16 19 B/P (MAP) 140/60 (86) 131/65 (87) 139/69 (92) Pulse Ox 99 99 99 O2 Delivery Room Air Room Air Room Air Room Air 04/19/17 04/19/17 04/19/17 04/19/17 13:00 14:00 15:00 16:00 Temp 97.9 97.9 Pulse 98 98 96 94 Resp 13 13 17 16 B/P (MAP) 151/70 (97) 153/70 (97) 147/67 (93) 140/67 (91) Pulse Ox 99 99 99 99 O2 Delivery Room Air Room Air Room Air Room Air 04/19/17 04/19/17 04/19/17 04/19/17 16:00 17:00 18:00 19:00 Pulse 94 92 90 Resp 16 16 B/P (MAP) 145/66 (92) 149/68 (95) 143/69 (93) Pulse Ox 99 99 97 O2 Delivery Room Air Room Air Room Air Room Air 04/19/17 04/19/17 04/19/17 04/19/17 20:00 20:00 21:00 22:00 Temp 97.6 97.6 Pulse 87 81 80 Resp 22 22 23 B/P (MAP) 146/71 (96) 140/72 (94) 142/73 (96) Pulse Ox 98 98 97 O2 Delivery Room Air Room Air Room Air Room Air 04/19/17 04/19/17 04/19/17 04/19/17 23:00 23:04 23:30 23:59 Pulse 81 Resp 22 20 21 B/P (MAP) 150/78 (102) Pulse Ox 97 99 97 O2 Delivery Room Air Room Air Room Air Room Air 04/20/17 04/20/17 04/20/17 04/20/17 00:00 01:00 02:00 03:00 Temp 98.1 98.1 Pulse 78 78 77 79 Resp 19 23 18 22 B/P (MAP) 146/74 (98) 142/76 (98) 150/75 (100) 140/70 (93) Pulse Ox 98 98 97 97 O2 Delivery Room Air Room Air Room Air Room Air 04/20/17 04/20/17 04/20/17 04/20/17 04:00 04:00 05:00 06:00 Temp 97.6 97.6 Pulse 79 81 74 Resp 20 16 18 B/P (MAP) 142/77 (98) 133/72 (92) 140/74 (96) Pulse Ox 97 97 99 O2 Delivery Room Air Room Air Room Air Room Air Intake and Output 04/19/17 04/19/17 04/20/17 14:59 22:59 06:59 Intake Total 1902.66 ml 3884 ml Output Total 400 ml 600 ml 475 ml Balance -400 ml 1302.66 ml 3409 ml Images Formal report on sono pending; preliminary negative. Assessment DKA, improved. Conceivable pancreatitis may have triggered this; would seem most likely alcoholic. Plan of Care: Continue current Tx, Mgmt Plan of Care Note Try feed? Recommended stop drinking. Await formal sono report. Dr. Gay back tomorrow. SOFIA STALLWORTH MD April 20, 2017 08:28
[2017-04-20] MEDS ORDERED: MAGNESIUM SULFATE 2GM 50 ML IV ONE (08:30)
[2017-04-20] MEDS ORDERED: chlordiazePOXIDE HCL 25 MG CAPSULE PO PRN (08:30)
[2017-04-20] MEDS ORDERED: DEXTROSE 50% 25 GM / 50ML DISP.SYRIN. IV PRN ×2 (08:30→09:30)
[2017-04-20] MEDS ORDERED: INSULIN DETEMIR 300 UNITS/3 ML INSULN.PEN. SQ ONE (08:30)
[2017-04-20] MEDS ORDERED: IV NORMAL SALINE 1000ML BAG 1,000 ML IV SCH (08:30)
[2017-04-20] MEDS ORDERED: MULTIVIT INFUSN,ADULT 4,VIT K 10 ML, FOLIC ACID 1 MG, THIAMINE 100 MG in IV DEXTROSE 5 ... IV SCH (09:00)
[2017-04-20] MEDS ORDERED: ASPIRIN ENTERIC COATED 81 MG TABLET.DR. PO SCH (09:00)
[2017-04-20] MEDS ORDERED: POTASSIUM PHOSPHATE,MONOBASIC 500 MG TABLET. PO SCH (09:00)
--- NOTE | 2017-04-20 09:14 | RAD ---
Ultrasound of the abdomen complete. History: Pancreatitis, evaluate for liver or bile duct disease Ultrasound was used to evaluate the abdomen. Pancreas was normal in appearance. There is no peripancreatic fluid evident. There is atherosclerotic change in the aorta without an aneurysm. Vena cava was unremarkable. Liver is normal in size and appearance without a focal lesion. Right kidney was 11.8 cm in length without a mass or hydronephrosis. Gallbladder was normal without gallstones or gallbladder wall thickening. Common duct was normal measuring 3 mm. There is shadowing from bowel gas which partially obscures the left kidney. Left kidney was 11 cm in length without hydronephrosis. Spleen was normal in size. Impression: 1. No gallstones noted. 2. Common duct normal at 3 mm. 3. Pancreas within normal limits in appearance. 4. Liver normal appearance.
--- NOTE | 2017-04-20 09:25 | PDOC ---
PROGRESS NOTES Chief Complaint Chief Complaint 1. ALcoholic pancreatitis with DKA 2. DM 2 on insulin 3. GAp metabolic acidosis sec to DKA, resolved 4. HEavy etohism 5. ANITHA, vasomotor, GI loss 6. Diarrhea, emesis, POA, resolved 7. Transient bloody emesis sec to retching, POA, resolved 8. TObacco use 9, chronic constipation History of Present Illness History of Present Illness Seen in ICU GAp closed last night NO more emesis/retching LIpase 982 - first episode pancreatitis Wants to go home soon ATe ADA diet breakfast, no abd pain or emesis PLAN: Levemir 11 once now Resume home dose levemir 22 qhs SSI high dose STart novolog 10 TID - gather might need high insulin reqmts given active pancreatitis NO need to check lipid panel (does not supprot body habitus and clinically have reason for pancreatitis) SO far no more gI losses (diarrhea) - will address once recurs Recheck lipase jerica BAnana bag daily Dc dextrose iVF IVF NS 125cc/hr Clean up ICU MAR GOal is to t/o ICU today Dc insulin gtt SSI high dose [id number] pending Replace K phosp (low )Po Replace mag 2 mgs iV now x 1 (mag 1.7) Dw [employer], pt and Wants to fo home jerica if maintains diet and BS controlled Vitals Vitals Vital Signs Date Time Temp Pulse Resp B/P (MAP) Pulse Ox O2 Delivery O2 Flow Rate FiO2 04/20/17 06:00 74 18 140/74 (96) 99 Room Air 04/20/17 04:00 97.6 97.6 Physical Exam General: Alert, Oriented X3, Cooperative, Other (somnolent) Heart: Regular rate, Normal S1, Normal S2, Rubs (probable pericardial rub) Lungs: Clear Abdomen: Soft, No tenderness Extremities: No clubbing, No cyanosis, No edema Skin: No rashes, No breakdown, No significant lesion Labs LABS Laboratory Tests Test 04/19/17 09:27 04/19/17 09:38 04/19/17 10:25 04/19/17 10:30 O2 Saturation 96 % (92-99) Arterial Blood pH 7.15 (7.35-7.45) Arterial Blood pCO2 at Patient Temp 22 mmHg (35-46) Arterial Blood pO2 at Patient Temp 91 mmHg (75-108) Arterial Blood HCO3 7 mmol/L (21-28) Arterial Blood Base Excess -20 mmol/L (-3-3) Oxyhemoglobin 95.1 % Methemoglobin 0.4 % (0.0-1.9) Carbon Monoxide, Quantitative 0.3 % (0.0-1.9) FiO2 21% Glucose (Fingerstick) 402 mg/dL (70-99) Urine Collection Type Unknown Urine Color Yellow Urine Clarity Clear Urine pH 5.0 Urine Specific [place] 1.025 Urine Protein Negative mg/dL (NEG-TRACE) Urine Glucose (UA) >=1000 mg/dL (NEG) Urine Ketones (Stick) >=80 mg/dL (NEG) Urine Blood Negative (NEG) Urine Nitrite Negative (NEG) Urine Bilirubin Negative (NEG) Urine Urobilinogen Dipstick 0.2 mg/dL (0.2 mg/dL) Urine Leukocyte Esterase Negative (NEG) Urine RBC Occ /HPF (0-2) Urine WBC 0 /HPF (0-4) Urine Squamous Epithelial Cells Few /LPF Urine Bacteria 0 /HPF (0-FEW) Urine Opiates Screen Neg (NEG) Urine Methadone Screen Neg (NEG) Urine Barbiturates Neg (NEG) Urine Phencyclidine Screen Neg (NEG) Urine Amphetamine/Methamphetamine Neg (NEG) Urine Benzodiazepines Screen Neg (NEG) Urine Cocaine Screen Neg (NEG) Urine Cannabinoids Screen Neg (NEG) Urine Ethyl Alcohol Neg (NEG) White Blood Count 21.8 x10^3/uL (4.0-11.0) Red Blood Count 4.28 x10^6/uL (4.30-5.70) Hemoglobin 14.6 g/dL (13.0-17.5) Hematocrit 44.0 % (39.0-53.0) Mean Corpuscular Volume 103 fL (79-100) Mean Corpuscular Hemoglobin 34 pg (25-35) Mean Corpuscular Hemoglobin Concent 33 g/dL (31-37) Red Cell Distribution Width 13.7 % (11.5-14.5) Platelet Count 261 x10^3/uL (140-400) Neutrophils (%) (Auto) 93 % (31-73) Lymphocytes (%) (Auto) 4 % (24-48) Monocytes (%) (Auto) 3 % (0-9) Eosinophils (%) (Auto) 0 % (0-3) Basophils (%) (Auto) 1 % (0-3) Neutrophils # (Auto) 20.2 x10^3uL (1.8-7.7) Lymphocytes # (Auto) 0.9 x10^3/uL (1.0-4.8) Monocytes # (Auto) 0.5 x10^3/uL (0.0-1.1) Eosinophils # (Auto) 0.0 x10^3/uL (0.0-0.7) Basophils # (Auto) 0.1 x10^3/uL (0.0-0.2) Segmented Neutrophils % 85 % (35-66) Lymphocytes % 11 % (24-48) Monocytes % 4 % (0-10) Platelet Estimate Adequate (ADEQUATE) Sodium Level 137 mmol/L (136-145) Potassium Level 5.0 mmol/L (3.5-5.1) Chloride Level 100 mmol/L (98-107) Carbon Dioxide Level 9 mmol/L (21-32) Anion Gap 28 (6-14) Blood Urea Nitrogen 34 mg/dL (8-26) Creatinine 1.7 mg/dL (0.7-1.3) Estimated GFR (Cockcroft-Gault) 42.1 Glucose Level 428 mg/dL (70-99) Calcium Level 8.6 mg/dL (8.5-10.1) Phosphorus Level 4.0 mg/dL (2.6-4.7) Magnesium Level 2.5 mg/dL (1.8-2.4) Total Bilirubin 0.6 mg/dL (0.2-1.0) Direct Bilirubin 0.2 mg/dL (0.0-0.2) Aspartate Amino Transf (AST/SGOT) 17 U/L (15-37) Alanine Aminotransferase (ALT/SGPT) 23 U/L (16-63) Alkaline Phosphatase 104 U/L (46-116) Total Protein 7.5 g/dL (6.4-8.2) Albumin 3.9 g/dL (3.4-5.0) Amylase Level 549 U/L (25-115) Lipase 2850 U/L (73-393) Test 04/19/17 10:46 04/19/17 11:51 04/19/17 12:05 04/19/17 12:53 Glucose (Fingerstick) 389 mg/dL (70-99) 278 mg/dL (70-99) 243 mg/dL (70-99) Creatine Kinase 38 U/L (39-308) Creatine Kinase MB (Mass) 1.0 ng/mL (0.0-3.6) Creatine Kinase MB Relative Index % (0-4) Troponin I Quantitative < 0.017 ng/mL (0.000-0.055) Test 04/19/17 13:53 04/19/17 14:55 04/19/17 16:01 04/19/17 17:04 Glucose (Fingerstick) 212 mg/dL (70-99) 229 mg/dL (70-99) 201 mg/dL (70-99) 172 mg/dL (70-99) Sodium Level 139 mmol/L (136-145) Potassium Level 4.0 mmol/L (3.5-5.1) Chloride Level 106 mmol/L (98-107) Carbon Dioxide Level 19 mmol/L (21-32) Anion Gap 14 (6-14) Blood Urea Nitrogen 27 mg/dL (8-26) Creatinine 1.4 mg/dL (0.7-1.3) Estimated GFR (Cockcroft-Gault) 52.6 Glucose Level 233 mg/dL (70-99) Calcium Level 8.4 mg/dL (8.5-10.1) Phosphorus Level 1.4 mg/dL (2.6-4.7) Magnesium Level 2.2 mg/dL (1.8-2.4) Test 04/19/17 18:00 04/19/17 18:15 04/19/17 19:15 04/19/17 20:08 Creatine Kinase 39 U/L (39-308) Creatine Kinase MB (Mass) 0.8 ng/mL (0.0-3.6) Creatine Kinase MB Relative Index 2.1 % (0-4) Troponin I Quantitative 0.018 ng/mL (0.000-0.055) Glucose (Fingerstick) 163 mg/dL (70-99) 115 mg/dL (70-99) 98 mg/dL (70-99) Test 04/19/17 21:07 04/19/17 22:00 04/19/17 23:02 04/19/17 23:44 Glucose (Fingerstick) 94 mg/dL (70-99) 95 mg/dL (70-99) 98 mg/dL (70-99) 124 mg/dL (70-99) Test 04/20/17 00:01 04/20/17 01:02 04/20/17 02:03 04/20/17 02:49 Sodium Level 144 mmol/L (136-145) Potassium Level 3.2 mmol/L (3.5-5.1) Chloride Level 111 mmol/L (98-107) Carbon Dioxide Level 20 mmol/L (21-32) Anion Gap 13 (6-14) Blood Urea Nitrogen 18 mg/dL (8-26) Creatinine 0.9 mg/dL (0.7-1.3) Estimated GFR (Cockcroft-Gault) 87.6 Glucose Level 128 mg/dL (70-99) Calcium Level 7.9 mg/dL (8.5-10.1) Phosphorus Level 2.7 mg/dL (2.6-4.7) Magnesium Level 2.1 mg/dL (1.8-2.4) Creatine Kinase 40 U/L (39-308) Creatine Kinase MB (Mass) 0.6 ng/mL (0.0-3.6) Creatine Kinase MB Relative Index 1.5 % (0-4) Troponin I Quantitative 0.017 ng/mL (0.000-0.055) Glucose (Fingerstick) 129 mg/dL (70-99) 141 mg/dL (70-99) 148 mg/dL (70-99) Test 04/20/17 03:50 04/20/17 04:43 04/20/17 06:04 04/20/17 06:05 Glucose (Fingerstick) 195 mg/dL (70-99) 186 mg/dL (70-99) 154 mg/dL (70-99) White Blood Count 14.5 x10^3/uL (4.0-11.0) Red Blood Count 3.83 x10^6/uL (4.30-5.70) Hemoglobin 12.7 g/dL (13.0-17.5) Hematocrit 38.5 % (39.0-53.0) Mean Corpuscular Volume 101 fL (79-100) Mean Corpuscular Hemoglobin 33 pg (25-35) Mean Corpuscular Hemoglobin Concent 33 g/dL (31-37) Red Cell Distribution Width 13.1 % (11.5-14.5) Platelet Count 213 x10^3/uL (140-400) Neutrophils (%) (Auto) 85 % (31-73) Lymphocytes (%) (Auto) 9 % (24-48) Monocytes (%) (Auto) 5 % (0-9) Eosinophils (%) (Auto) 0 % (0-3) Basophils (%) (Auto) 1 % (0-3) Neutrophils # (Auto) 12.3 x10^3uL (1.8-7.7) Lymphocytes # (Auto) 1.3 x10^3/uL (1.0-4.8) Monocytes # (Auto) 0.7 x10^3/uL (0.0-1.1) Eosinophils # (Auto) 0.0 x10^3/uL (0.0-0.7) Basophils # (Auto) 0.1 x10^3/uL (0.0-0.2) Sodium Level 144 mmol/L (136-145) Potassium Level 3.6 mmol/L (3.5-5.1) Chloride Level 113 mmol/L (98-107) Carbon Dioxide Level 20 mmol/L (21-32) Anion Gap 11 (6-14) Blood Urea Nitrogen 13 mg/dL (8-26) Creatinine 0.9 mg/dL (0.7-1.3) Estimated GFR (Cockcroft-Gault) 87.6 Glucose Level 160 mg/dL (70-99) Calcium Level 7.6 mg/dL (8.5-10.1) Phosphorus Level 1.1 mg/dL (2.6-4.7) Magnesium Level 1.7 mg/dL (1.8-2.4) Lipase 982 U/L (73-393) Test 04/20/17 07:00 04/20/17 08:12 Glucose (Fingerstick) 117 mg/dL (70-99) 172 mg/dL (70-99) Review of Systems Review of Systems denies emesis, abd pain, diarrhea or cough, or soa Comment Review of Relevant I have reviewed the following items raul (where applicable) has been applied. Labs Laboratory Tests Test 04/19/17 09:27 04/19/17 09:38 04/19/17 10:25 04/19/17 10:30 O2 Saturation 96 % (92-99) Arterial Blood pH 7.15 (7.35-7.45) Arterial Blood pCO2 at Patient Temp 22 mmHg (35-46) Arterial Blood pO2 at Patient Temp 91 mmHg (75-108) Arterial Blood HCO3 7 mmol/L (21-28) Arterial Blood Base Excess -20 mmol/L (-3-3) Oxyhemoglobin 95.1 % Methemoglobin 0.4 % (0.0-1.9) Carbon Monoxide, Quantitative 0.3 % (0.0-1.9) FiO2 21% Glucose (Fingerstick) 402 mg/dL (70-99) Urine Collection Type Unknown Urine Color Yellow Urine Clarity Clear Urine pH 5.0 Urine Specific [place] 1.025 Urine Protein Negative mg/dL (NEG-TRACE) Urine Glucose (UA) >=1000 mg/dL (NEG) Urine Ketones (Stick) >=80 mg/dL (NEG) Urine Blood Negative (NEG) Urine Nitrite Negative (NEG) Urine Bilirubin Negative (NEG) Urine Urobilinogen Dipstick 0.2 mg/dL (0.2 mg/dL) Urine Leukocyte Esterase Negative (NEG) Urine RBC Occ /HPF (0-2) Urine WBC 0 /HPF (0-4) Urine Squamous Epithelial Cells Few /LPF Urine Bacteria 0 /HPF (0-FEW) Urine Opiates Screen Neg (NEG) Urine Methadone Screen Neg (NEG) Urine Barbiturates Neg (NEG) Urine Phencyclidine Screen Neg (NEG) Urine Amphetamine/Methamphetamine Neg (NEG) Urine Benzodiazepines Screen Neg (NEG) Urine Cocaine Screen Neg (NEG) Urine Cannabinoids Screen Neg (NEG) Urine Ethyl Alcohol Neg (NEG) White Blood Count 21.8 x10^3/uL (4.0-11.0) Red Blood Count 4.28 x10^6/uL (4.30-5.70) Hemoglobin 14.6 g/dL (13.0-17.5) Hematocrit 44.0 % (39.0-53.0) Mean Corpuscular Volume 103 fL (79-100) Mean Corpuscular Hemoglobin 34 pg (25-35) Mean Corpuscular Hemoglobin Concent 33 g/dL (31-37) Red Cell Distribution Width 13.7 % (11.5-14.5) Platelet Count 261 x10^3/uL (140-400) Neutrophils (%) (Auto) 93 % (31-73) Lymphocytes (%) (Auto) 4 % (24-48) Monocytes (%) (Auto) 3 % (0-9) Eosinophils (%) (Auto) 0 % (0-3) Basophils (%) (Auto) 1 % (0-3) Neutrophils # (Auto) 20.2 x10^3uL (1.8-7.7) Lymphocytes # (Auto) 0.9 x10^3/uL (1.0-4.8) Monocytes # (Auto) 0.5 x10^3/uL (0.0-1.1) Eosinophils # (Auto) 0.0 x10^3/uL (0.0-0.7) Basophils # (Auto) 0.1 x10^3/uL (0.0-0.2) Segmented Neutrophils % 85 % (35-66) Lymphocytes % 11 % (24-48) Monocytes % 4 % (0-10) Platelet Estimate Adequate (ADEQUATE) Sodium Level 137 mmol/L (136-145) Potassium Level 5.0 mmol/L (3.5-5.1) Chloride Level 100 mmol/L (98-107) Carbon Dioxide Level 9 mmol/L (21-32) Anion Gap 28 (6-14) Blood Urea Nitrogen 34 mg/dL (8-26) Creatinine 1.7 mg/dL (0.7-1.3) Estimated GFR (Cockcroft-Gault) 42.1 Glucose Level 428 mg/dL (70-99) Calcium Level 8.6 mg/dL (8.5-10.1) Phosphorus Level 4.0 mg/dL (2.6-4.7) Magnesium Level 2.5 mg/dL (1.8-2.4) Total Bilirubin 0.6 mg/dL (0.2-1.0) Direct Bilirubin 0.2 mg/dL (0.0-0.2) Aspartate Amino Transf (AST/SGOT) 17 U/L (15-37) Alanine Aminotransferase (ALT/SGPT) 23 U/L (16-63) Alkaline Phosphatase 104 U/L (46-116) Total Protein 7.5 g/dL (6.4-8.2) Albumin 3.9 g/dL (3.4-5.0) Amylase Level 549 U/L (25-115) Lipase 2850 U/L (73-393) Test 04/19/17 10:46 04/19/17 11:51 04/19/17 12:05 04/19/17 12:53 Glucose (Fingerstick) 389 mg/dL (70-99) 278 mg/dL (70-99) 243 mg/dL (70-99) Creatine Kinase 38 U/L (39-308) Creatine Kinase MB (Mass) 1.0 ng/mL (0.0-3.6) Creatine Kinase MB Relative Index % (0-4) Troponin I Quantitative < 0.017 ng/mL (0.000-0.055) Test 04/19/17 13:53 04/19/17 14:55 04/19/17 16:01 04/19/17 17:04 Glucose (Fingerstick) 212 mg/dL (70-99) 229 mg/dL (70-99) 201 mg/dL (70-99) 172 mg/dL (70-99) Sodium Level 139 mmol/L (136-145) Potassium Level 4.0 mmol/L (3.5-5.1) Chloride Level 106 mmol/L (98-107) Carbon Dioxide Level 19 mmol/L (21-32) Anion Gap 14 (6-14) Blood Urea Nitrogen 27 mg/dL (8-26) Creatinine 1.4 mg/dL (0.7-1.3) Estimated GFR (Cockcroft-Gault) 52.6 Glucose Level 233 mg/dL (70-99) Calcium Level 8.4 mg/dL (8.5-10.1) Phosphorus Level 1.4 mg/dL (2.6-4.7) Magnesium Level 2.2 mg/dL (1.8-2.4) Test 04/19/17 18:00 04/19/17 18:15 04/19/17 19:15 04/19/17 20:08 Creatine Kinase 39 U/L (39-308) Creatine Kinase MB (Mass) 0.8 ng/mL (0.0-3.6) Creatine Kinase MB Relative Index 2.1 % (0-4) Troponin I Quantitative 0.018 ng/mL (0.000-0.055) Glucose (Fingerstick) 163 mg/dL (70-99) 115 mg/dL (70-99) 98 mg/dL (70-99) Test 04/19/17 21:07 04/19/17 22:00 04/19/17 23:02 04/19/17 23:44 Glucose (Fingerstick) 94 mg/dL (70-99) 95 mg/dL (70-99) 98 mg/dL (70-99) 124 mg/dL (70-99) Test 04/20/17 00:01 04/20/17 01:02 04/20/17 02:03 04/20/17 02:49 Sodium Level 144 mmol/L (136-145) Potassium Level 3.2 mmol/L (3.5-5.1) Chloride Level 111 mmol/L (98-107) Carbon Dioxide Level 20 mmol/L (21-32) Anion Gap 13 (6-14) Blood Urea Nitrogen 18 mg/dL (8-26) Creatinine 0.9 mg/dL (0.7-1.3) Estimated GFR (Cockcroft-Gault) 87.6 Glucose Level 128 mg/dL (70-99) Calcium Level 7.9 mg/dL (8.5-10.1) Phosphorus Level 2.7 mg/dL (2.6-4.7) Magnesium Level 2.1 mg/dL (1.8-2.4) Creatine Kinase 40 U/L (39-308) Creatine Kinase MB (Mass) 0.6 ng/mL (0.0-3.6) Creatine Kinase MB Relative Index 1.5 % (0-4) Troponin I Quantitative 0.017 ng/mL (0.000-0.055) Glucose (Fingerstick) 129 mg/dL (70-99) 141 mg/dL (70-99) 148 mg/dL (70-99) Test 04/20/17 03:50 04/20/17 04:43 04/20/17 06:04 04/20/17 06:05 Glucose (Fingerstick) 195 mg/dL (70-99) 186 mg/dL (70-99) 154 mg/dL (70-99) White Blood Count 14.5 x10^3/uL (4.0-11.0) Red Blood Count 3.83 x10^6/uL (4.30-5.70) Hemoglobin 12.7 g/dL (13.0-17.5) Hematocrit 38.5 % (39.0-53.0) Mean Corpuscular Volume 101 fL (79-100) Mean Corpuscular Hemoglobin 33 pg (25-35) Mean Corpuscular Hemoglobin Concent 33 g/dL (31-37) Red Cell Distribution Width 13.1 % (11.5-14.5) Platelet Count 213 x10^3/uL (140-400) Neutrophils (%) (Auto) 85 % (31-73) Lymphocytes (%) (Auto) 9 % (24-48) Monocytes (%) (Auto) 5 % (0-9) Eosinophils (%) (Auto) 0 % (0-3) Basophils (%) (Auto) 1 % (0-3) Neutrophils # (Auto) 12.3 x10^3uL (1.8-7.7) Lymphocytes # (Auto) 1.3 x10^3/uL (1.0-4.8) Monocytes # (Auto) 0.7 x10^3/uL (0.0-1.1) Eosinophils # (Auto) 0.0 x10^3/uL (0.0-0.7) Basophils # (Auto) 0.1 x10^3/uL (0.0-0.2) Sodium Level 144 mmol/L (136-145) Potassium Level 3.6 mmol/L (3.5-5.1) Chloride Level 113 mmol/L (98-107) Carbon Dioxide Level 20 mmol/L (21-32) Anion Gap 11 (6-14) Blood Urea Nitrogen 13 mg/dL (8-26) Creatinine 0.9 mg/dL (0.7-1.3) Estimated GFR (Cockcroft-Gault) 87.6 Glucose Level 160 mg/dL (70-99) Calcium Level 7.6 mg/dL (8.5-10.1) Phosphorus Level 1.1 mg/dL (2.6-4.7) Magnesium Level 1.7 mg/dL (1.8-2.4) Lipase 982 U/L (73-393) Test 04/20/17 07:00 04/20/17 08:12 Glucose (Fingerstick) 117 mg/dL (70-99) 172 mg/dL (70-99) Laboratory Tests Test 04/19/17 09:27 04/19/17 09:38 04/19/17 10:25 04/19/17 10:30 O2 Saturation 96 % (92-99) Arterial Blood pH 7.15 (7.35-7.45) Arterial Blood pCO2 at Patient Temp 22 mmHg (35-46) Arterial Blood pO2 at Patient Temp 91 mmHg (75-108) Arterial Blood HCO3 7 mmol/L (21-28) Arterial Blood Base Excess -20 mmol/L (-3-3) Oxyhemoglobin 95.1 % Methemoglobin 0.4 % (0.0-1.9) Carbon Monoxide, Quantitative 0.3 % (0.0-1.9) FiO2 21% Glucose (Fingerstick) 402 mg/dL (70-99) Urine Collection Type Unknown Urine Color Yellow Urine Clarity Clear Urine pH 5.0 Urine Specific [place] 1.025 Urine Protein Negative mg/dL (NEG-TRACE) Urine Glucose (UA) >=1000 mg/dL (NEG) Urine Ketones (Stick) >=80 mg/dL (NEG) Urine Blood Negative (NEG) Urine Nitrite Negative (NEG) Urine Bilirubin Negative (NEG) Urine Urobilinogen Dipstick 0.2 mg/dL (0.2 mg/dL) Urine Leukocyte Esterase Negative (NEG) Urine RBC Occ /HPF (0-2) Urine WBC 0 /HPF (0-4) Urine Squamous Epithelial Cells Few /LPF Urine Bacteria 0 /HPF (0-FEW) Urine Opiates Screen Neg (NEG) Urine Methadone Screen Neg (NEG) Urine Barbiturates Neg (NEG) Urine Phencyclidine Screen Neg (NEG) Urine Amphetamine/Methamphetamine Neg (NEG) Urine Benzodiazepines Screen Neg (NEG) Urine Cocaine Screen Neg (NEG) Urine Cannabinoids Screen Neg (NEG) Urine Ethyl Alcohol Neg (NEG) White Blood Count 21.8 x10^3/uL (4.0-11.0) Red Blood Count 4.28 x10^6/uL (4.30-5.70) Hemoglobin 14.6 g/dL (13.0-17.5) Hematocrit 44.0 % (39.0-53.0) Mean Corpuscular Volume 103 fL (79-100) Mean Corpuscular Hemoglobin 34 pg (25-35) Mean Corpuscular Hemoglobin Concent 33 g/dL (31-37) Red Cell Distribution Width 13.7 % (11.5-14.5) Platelet Count 261 x10^3/uL (140-400) Neutrophils (%) (Auto) 93 % (31-73) Lymphocytes (%) (Auto) 4 % (24-48) Monocytes (%) (Auto) 3 % (0-9) Eosinophils (%) (Auto) 0 % (0-3) Basophils (%) (Auto) 1 % (0-3) Neutrophils # (Auto) 20.2 x10^3uL (1.8-7.7) Lymphocytes # (Auto) 0.9 x10^3/uL (1.0-4.8) Monocytes # (Auto) 0.5 x10^3/uL (0.0-1.1) Eosinophils # (Auto) 0.0 x10^3/uL (0.0-0.7) Basophils # (Auto) 0.1 x10^3/uL (0.0-0.2) Segmented Neutrophils % 85 % (35-66) Lymphocytes % 11 % (24-48) Monocytes % 4 % (0-10) Platelet Estimate Adequate (ADEQUATE) Sodium Level 137 mmol/L (136-145) Potassium Level 5.0 mmol/L (3.5-5.1) Chloride Level 100 mmol/L (98-107) Carbon Dioxide Level 9 mmol/L (21-32) Anion Gap 28 (6-14) Blood Urea Nitrogen 34 mg/dL (8-26) Creatinine 1.7 mg/dL (0.7-1.3) Estimated GFR (Cockcroft-Gault) 42.1 Glucose Level 428 mg/dL (70-99) Calcium Level 8.6 mg/dL (8.5-10.1) Phosphorus Level 4.0 mg/dL (2.6-4.7) Magnesium Level 2.5 mg/dL (1.8-2.4) Total Bilirubin 0.6 mg/dL (0.2-1.0) Direct Bilirubin 0.2 mg/dL (0.0-0.2) Aspartate Amino Transf (AST/SGOT) 17 U/L (15-37) Alanine Aminotransferase (ALT/SGPT) 23 U/L (16-63) Alkaline Phosphatase 104 U/L (46-116) Total Protein 7.5 g/dL (6.4-8.2) Albumin 3.9 g/dL (3.4-5.0) Amylase Level 549 U/L (25-115) Lipase 2850 U/L (73-393) Test 04/19/17 10:46 04/19/17 11:51 04/19/17 12:05 04/19/17 12:53 Glucose (Fingerstick) 389 mg/dL (70-99) 278 mg/dL (70-99) 243 mg/dL (70-99) Creatine Kinase 38 U/L (39-308) Creatine Kinase MB (Mass) 1.0 ng/mL (0.0-3.6) Creatine Kinase MB Relative Index % (0-4) Troponin I Quantitative < 0.017 ng/mL (0.000-0.055) Test 04/19/17 13:53 04/19/17 14:55 04/19/17 16:01 04/19/17 17:04 Glucose (Fingerstick) 212 mg/dL (70-99) 229 mg/dL (70-99) 201 mg/dL (70-99) 172 mg/dL (70-99) Sodium Level 139 mmol/L (136-145) Potassium Level 4.0 mmol/L (3.5-5.1) Chloride Level 106 mmol/L (98-107) Carbon Dioxide Level 19 mmol/L (21-32) Anion Gap 14 (6-14) Blood Urea Nitrogen 27 mg/dL (8-26) Creatinine 1.4 mg/dL (0.7-1.3) Estimated GFR (Cockcroft-Gault) 52.6 Glucose Level 233 mg/dL (70-99) Calcium Level 8.4 mg/dL (8.5-10.1) Phosphorus Level 1.4 mg/dL (2.6-4.7) Magnesium Level 2.2 mg/dL (1.8-2.4) Test 04/19/17 18:00 04/19/17 18:15 04/19/17 19:15 04/19/17 20:08 Creatine Kinase 39 U/L (39-308) Creatine Kinase MB (Mass) 0.8 ng/mL (0.0-3.6) Creatine Kinase MB Relative Index 2.1 % (0-4) Troponin I Quantitative 0.018 ng/mL (0.000-0.055) Glucose (Fingerstick) 163 mg/dL (70-99) 115 mg/dL (70-99) 98 mg/dL (70-99) Test 04/19/17 21:07 04/19/17 22:00 04/19/17 23:02 04/19/17 23:44 Glucose (Fingerstick) 94 mg/dL (70-99) 95 mg/dL (70-99) 98 mg/dL (70-99) 124 mg/dL (70-99) Test 04/20/17 00:01 04/20/17 01:02 04/20/17 02:03 04/20/17 02:49 Sodium Level 144 mmol/L (136-145) Potassium Level 3.2 mmol/L (3.5-5.1) Chloride Level 111 mmol/L (98-107) Carbon Dioxide Level 20 mmol/L (21-32) Anion Gap 13 (6-14) Blood Urea Nitrogen 18 mg/dL (8-26) Creatinine 0.9 mg/dL (0.7-1.3) Estimated GFR (Cockcroft-Gault) 87.6 Glucose Level 128 mg/dL (70-99) Calcium Level 7.9 mg/dL (8.5-10.1) Phosphorus Level 2.7 mg/dL (2.6-4.7) Magnesium Level 2.1 mg/dL (1.8-2.4) Creatine Kinase 40 U/L (39-308) Creatine Kinase MB (Mass) 0.6 ng/mL (0.0-3.6) Creatine Kinase MB Relative Index 1.5 % (0-4) Troponin I Quantitative 0.017 ng/mL (0.000-0.055) Glucose (Fingerstick) 129 mg/dL (70-99) 141 mg/dL (70-99) 148 mg/dL (70-99) Test 04/20/17 03:50 04/20/17 04:43 04/20/17 06:04 04/20/17 06:05 Glucose (Fingerstick) 195 mg/dL (70-99) 186 mg/dL (70-99) 154 mg/dL (70-99) White Blood Count 14.5 x10^3/uL (4.0-11.0) Red Blood Count 3.83 x10^6/uL (4.30-5.70) Hemoglobin 12.7 g/dL (13.0-17.5) Hematocrit 38.5 % (39.0-53.0) Mean Corpuscular Volume 101 fL (79-100) Mean Corpuscular Hemoglobin 33 pg (25-35) Mean Corpuscular Hemoglobin Concent 33 g/dL (31-37) Red Cell Distribution Width 13.1 % (11.5-14.5) Platelet Count 213 x10^3/uL (140-400) Neutrophils (%) (Auto) 85 % (31-73) Lymphocytes (%) (Auto) 9 % (24-48) Monocytes (%) (Auto) 5 % (0-9) Eosinophils (%) (Auto) 0 % (0-3) Basophils (%) (Auto) 1 % (0-3) Neutrophils # (Auto) 12.3 x10^3uL (1.8-7.7) Lymphocytes # (Auto) 1.3 x10^3/uL (1.0-4.8) Monocytes # (Auto) 0.7 x10^3/uL (0.0-1.1) Eosinophils # (Auto) 0.0 x10^3/uL (0.0-0.7) Basophils # (Auto) 0.1 x10^3/uL (0.0-0.2) Sodium Level 144 mmol/L (136-145) Potassium Level 3.6 mmol/L (3.5-5.1) Chloride Level 113 mmol/L (98-107) Carbon Dioxide Level 20 mmol/L (21-32) Anion Gap 11 (6-14) Blood Urea Nitrogen 13 mg/dL (8-26) Creatinine 0.9 mg/dL (0.7-1.3) Estimated GFR (Cockcroft-Gault) 87.6 Glucose Level 160 mg/dL (70-99) Calcium Level 7.6 mg/dL (8.5-10.1) Phosphorus Level 1.1 mg/dL (2.6-4.7) Magnesium Level 1.7 mg/dL (1.8-2.4) Lipase 982 U/L (73-393) Test 04/20/17 07:00 04/20/17 08:12 Glucose (Fingerstick) 117 mg/dL (70-99) 172 mg/dL (70-99) Medications Current Medications Sodium Chloride 1,000 ml @ 250 mls/hr Q4H IV Last administered on 04/19/17 09 :44; Start 04/19/17 at 09:30; Stop 04/19/17 at 12:59; Status DC Insulin Human Regular 150 unit/ Sodium Chloride 151.5 ml @ 0 mls/hr CONT PRN PRN IV PER PROTOCOL Last administered on 04/19/17 09:44; Start 04/19/17 at 09: 30; Stop 04/20/17 at 08:25; Status DC Potassium Chloride 100 ml @ 100 mls/hr PRN Q1HR PRN IV SEE COMMENTS; Start at 09:30 Potassium Chloride 100 ml @ 100 mls/hr PRN Q1HR PRN IV SEE COMMENTS; Start at 09:30 Potassium Chloride 100 ml @ 100 mls/hr PRN Q1HR PRN IV SEE COMMENTS; Start at 09:30 Pantoprazole Sodium 80 mg/ Sodium Chloride 100 ml @ 10 mls/hr Q10H IV Last administered on 04/20/17 02:55; Start 04/19/17 at 09:45 Dextrose/Sodium Chloride 1,000 ml @ 250 mls/hr Q4H IV Last administered on 05:39; Start 04/19/17 at 13:00; Stop 04/20/17 at 08:25; Status DC Aspirin (Ecotrin) 81 mg DAILY PO ; Start 04/20/17 at 09:00 Acetaminophen (Tylenol) 650 mg PRN Q6HRS PRN PO FEVER; Start 04/19/17 at 14:00 Ondansetron HCl (Zofran) 4 mg PRN Q6HRS PRN IV NAUSEA/VOMITING; Start 04/19/17 at 14:00 Morphine Sulfate 2 mg PRN Q2HR PRN IV PAIN Last administered on 04/19/17 23:04 ; Start 04/19/17 at 14:00 Tramadol HCl (Ultram) 50 mg PRN Q6HRS PRN PO PAIN; Start 04/19/17 at 14:00 Hydralazine HCl (Apresoline) 10 mg PRN Q4HRS PRN IVP ELEVATED BP, SEE COMMENTS ; Start 04/19/17 at 14:00 Docusate Sodium (Colace) 100 mg PRN DAILY PRN PO CONSTIPATION; Start 04/19/17 at 14:00 Enoxaparin Sodium (Lovenox 40mg Syringe) 40 mg Q24H SQ ; Start 04/19/17 at 14:00 ; Stop 04/19/17 at 14:00; Status DC Sodium Phosphate 15 mmol/Dextrose 255 ml @ 62.5 mls/hr 1X ONCE IV Last administered on 04/19/17 16:14; Start 04/19/17 at 16:00; Stop 04/19/17 at 20:04 ; Status DC Potassium Chloride 100 ml @ 100 mls/hr Q1H IV Last administered on 04/20/17 05:38; Start 04/20/17 at 03:00; Stop 04/20/17 at 06:59; Status DC Magnesium Sulfate/ Dextrose 100 ml @ 25 mls/hr 1X ONCE IV Last administered on 04/20/17 07:33; Start 04/20/17 at 07:00; Stop 04/20/17 at 10:59 Sodium Phosphate 20 mmol/Dextrose 256.6667 ml @ 64.167 m... 1X ONCE IV Last administered on 04/20/17 07:34; Start 04/20/17 at 07:00; Stop 04/20/17 at 10:59 Insulin Detemir (Levemir) 22 units QHS SQ ; Start 04/20/17 at 21:00 Insulin Aspart (NovoLOG) 0-7 UNITS TIDWMEALS SQ ; Start 04/20/17 at 12:00 Dextrose (Dextrose 50%-Water Syringe) 12.5 gm PRN Q15MIN PRN IV SEE COMMENTS; Start 04/20/17 at 08:30 Insulin Detemir (Levemir) 11 units 1X ONCE SQ ; Start 04/20/17 at 08:30; Stop 04/20/17 at 08:34; Status DC Chlordiazepoxide (Librium) 25 mg PRN Q6HRS PRN PO ANXIETY / AGITATION; Start at 08:30 Multivitamins 10 ml/Folic Acid 1 mg/Thiamine HCl 100 mg/Dextrose/ Sodium Chloride 1,011.1 ml @ 100 mls/ hr DAILY IV ; Start 04/20/17 at 09:00 Sodium Chloride 1,000 ml @ 125 mls/hr Q8H IV ; Start 04/20/17 at 08:30 Potassium Phosphate (K-Phos Original) 500 mg TID PO ; Start 04/20/17 at 09:00 Magnesium Sulfate/ Dextrose 50 ml @ 25 mls/hr 1X ONCE IV ; Start 04/20/17 at 08 :30; Stop 04/20/17 at 10:29 Active Scripts Active Reported Aspir 81 (Aspirin) 81 Mg Tablet.dr 1 Tab PO DAILY Humalog (Insulin Lispro) 100 Unit/1 Ml Cartridge 3-4 Unit SQ DAILYWLUN Levemir (Insulin Detemir) 100 Unit/1 Ml Vial 22 Unit SQ QHS Vitals/I & O Vital Sign - Last 24 Hours 04/19/17 04/19/17 04/19/17 04/19/17 09:30 09:45 10:00 11:00 Pulse 110 112 112 110 Resp 18 18 16 16 B/P (MAP) 116/53 (74) 140/61 (87) 140/60 (86) 131/65 (87) Pulse Ox 98 98 99 99 O2 Delivery Room Air Room Air Room Air Room Air 04/19/17 04/19/17 04/19/17 04/19/17 12:00 12:00 13:00 14:00 Temp 97.9 97.9 Pulse 106 98 98 Resp 19 13 13 B/P (MAP) 139/69 (92) 151/70 (97) 153/70 (97) Pulse Ox 99 99 99 O2 Delivery Room Air Room Air Room Air Room Air 04/19/17 04/19/17 04/19/17 04/19/17 15:00 16:00 16:00 17:00 Pulse 96 94 94 Resp 17 16 16 B/P (MAP) 147/67 (93) 140/67 (91) 145/66 (92) Pulse Ox 99 99 99 O2 Delivery Room Air Room Air Room Air Room Air 04/19/17 04/19/17 04/19/17 04/19/17 18:00 19:00 20:00 20:00 Temp 97.6 97.6 Pulse 92 90 87 Resp 16 22 B/P (MAP) 149/68 (95) 143/69 (93) 146/71 (96) Pulse Ox 99 97 98 O2 Delivery Room Air Room Air Room Air Room Air 04/19/17 04/19/17 04/19/17 04/19/17 21:00 22:00 23:00 23:04 Pulse 81 80 81 Resp 22 23 22 20 B/P (MAP) 140/72 (94) 142/73 (96) 150/78 (102) Pulse Ox 98 97 97 99 O2 Delivery Room Air Room Air Room Air Room Air 04/19/17 04/19/17 04/20/17 04/20/17 23:30 23:59 00:00 01:00 Temp 98.1 98.1 Pulse 78 78 Resp 21 19 23 B/P (MAP) 146/74 (98) 142/76 (98) Pulse Ox 97 98 98 O2 Delivery Room Air Room Air Room Air Room Air 04/20/17 04/20/17 04/20/17 04/20/17 02:00 03:00 04:00 04:00 Temp 97.6 97.6 Pulse 77 79 79 Resp 18 22 20 B/P (MAP) 150/75 (100) 140/70 (93) 142/77 (98) Pulse Ox 97 97 97 O2 Delivery Room Air Room Air Room Air Room Air 04/20/17 04/20/17 05:00 06:00 Pulse 81 74 Resp 16 18 B/P (MAP) 133/72 (92) 140/74 (96) Pulse Ox 97 99 O2 Delivery Room Air Room Air Intake and Output 04/19/17 04/19/17 04/20/17 15:00 23:00 07:00 Intake Total 1902.66 ml 3884 ml Output Total 400 ml 600 ml 475 ml Balance -400 ml 1302.66 ml 3409 ml ZOIE HANSEN MD April 20, 2017 09:25
[2017-04-20] MEDS ORDERED: INSULIN ASPART 300 UNITS/3 ML INSULN.PEN SQ SCH ×3 (11:30→12:00)
[2017-04-20 12:21] LABS: CALCIUM 7.8 mg/dL (8.5-10.1); CREATININE 0.8 mg/dL (0.7-1.3); GFR 100.4; MAGNESIUM 2.7 mg/dL (1.8-2.4); PHOSPHORUS 1.8 mg/dL (2.6-4.7); POTASSIUM 3.3 mmol/L (3.5-5.1)
--- NOTE | 2017-04-20 14:26 | PDOC3 ---
Discharge Summary Visit Information Date of Admission: April 19, 2017 Date of Discharge: April 20, 2017 Admitting Diagnosis Comment: Chief Complaint 1. ALcoholic pancreatitis with DKA 2. DM 2 on insulin 3. GAp metabolic acidosis sec to DKA, resolved 4. HEavy etohism 5. ANITHA, vasomotor, GI loss 6. Diarrhea, emesis, POA, resolved 7. Transient bloody emesis sec to retching, POA, resolved 8. TObacco use 9, chronic constipation Brief Hospital Course Allergies Allergies Coded Allergies Type Severity Reaction Last Updated Verified pseudoephedrine Allergy Severe 04/19/17 Yes Vital Signs Vital Signs Date Time Temp Pulse Resp B/P (MAP) Pulse Ox O2 Delivery O2 Flow Rate FiO2 04/20/17 13:00 98.6 76 21 140/72 (94) 97 Room Air 98.6 Lab Results Laboratory Tests Test 04/19/17 09:27 04/19/17 09:38 04/19/17 10:25 04/19/17 10:30 O2 Saturation 96 % (92-99) Arterial Blood pH 7.15 (7.35-7.45) Arterial Blood pCO2 at Patient Temp 22 mmHg (35-46) Arterial Blood pO2 at Patient Temp 91 mmHg (75-108) Arterial Blood HCO3 7 mmol/L (21-28) Arterial Blood Base Excess -20 mmol/L (-3-3) Oxyhemoglobin 95.1 % Methemoglobin 0.4 % (0.0-1.9) Carbon Monoxide, Quantitative 0.3 % (0.0-1.9) FiO2 21% Glucose (Fingerstick) 402 mg/dL (70-99) Urine Collection Type Unknown Urine Color Yellow Urine Clarity Clear Urine pH 5.0 Urine Specific [place] 1.025 Urine Protein Negative mg/dL (NEG-TRACE) Urine Glucose (UA) >=1000 mg/dL (NEG) Urine Ketones (Stick) >=80 mg/dL (NEG) Urine Blood Negative (NEG) Urine Nitrite Negative (NEG) Urine Bilirubin Negative (NEG) Urine Urobilinogen Dipstick 0.2 mg/dL (0.2 mg/dL) Urine Leukocyte Esterase Negative (NEG) Urine RBC Occ /HPF (0-2) Urine WBC 0 /HPF (0-4) Urine Squamous Epithelial Cells Few /LPF Urine Bacteria 0 /HPF (0-FEW) Urine Opiates Screen Neg (NEG) Urine Methadone Screen Neg (NEG) Urine Barbiturates Neg (NEG) Urine Phencyclidine Screen Neg (NEG) Urine Amphetamine/Methamphetamine Neg (NEG) Urine Benzodiazepines Screen Neg (NEG) Urine Cocaine Screen Neg (NEG) Urine Cannabinoids Screen Neg (NEG) Urine Ethyl Alcohol Neg (NEG) White Blood Count 21.8 x10^3/uL (4.0-11.0) Red Blood Count 4.28 x10^6/uL (4.30-5.70) Hemoglobin 14.6 g/dL (13.0-17.5) Hematocrit 44.0 % (39.0-53.0) Mean Corpuscular Volume 103 fL (79-100) Mean Corpuscular Hemoglobin 34 pg (25-35) Mean Corpuscular Hemoglobin Concent 33 g/dL (31-37) Red Cell Distribution Width 13.7 % (11.5-14.5) Platelet Count 261 x10^3/uL (140-400) Neutrophils (%) (Auto) 93 % (31-73) Lymphocytes (%) (Auto) 4 % (24-48) Monocytes (%) (Auto) 3 % (0-9) Eosinophils (%) (Auto) 0 % (0-3) Basophils (%) (Auto) 1 % (0-3) Neutrophils # (Auto) 20.2 x10^3uL (1.8-7.7) Lymphocytes # (Auto) 0.9 x10^3/uL (1.0-4.8) Monocytes # (Auto) 0.5 x10^3/uL (0.0-1.1) Eosinophils # (Auto) 0.0 x10^3/uL (0.0-0.7) Basophils # (Auto) 0.1 x10^3/uL (0.0-0.2) Segmented Neutrophils % 85 % (35-66) Lymphocytes % 11 % (24-48) Monocytes % 4 % (0-10) Platelet Estimate Adequate (ADEQUATE) Sodium Level 137 mmol/L (136-145) Potassium Level 5.0 mmol/L (3.5-5.1) Chloride Level 100 mmol/L (98-107) Carbon Dioxide Level 9 mmol/L (21-32) Anion Gap 28 (6-14) Blood Urea Nitrogen 34 mg/dL (8-26) Creatinine 1.7 mg/dL (0.7-1.3) Estimated GFR (Cockcroft-Gault) 42.1 Glucose Level 428 mg/dL (70-99) Calcium Level 8.6 mg/dL (8.5-10.1) Phosphorus Level 4.0 mg/dL (2.6-4.7) Magnesium Level 2.5 mg/dL (1.8-2.4) Total Bilirubin 0.6 mg/dL (0.2-1.0) Direct Bilirubin 0.2 mg/dL (0.0-0.2) Aspartate Amino Transf (AST/SGOT) 17 U/L (15-37) Alanine Aminotransferase (ALT/SGPT) 23 U/L (16-63) Alkaline Phosphatase 104 U/L (46-116) Total Protein 7.5 g/dL (6.4-8.2) Albumin 3.9 g/dL (3.4-5.0) Amylase Level 549 U/L (25-115) Lipase 2850 U/L (73-393) Test 04/19/17 10:46 04/19/17 11:51 04/19/17 12:05 04/19/17 12:53 Glucose (Fingerstick) 389 mg/dL (70-99) 278 mg/dL (70-99) 243 mg/dL (70-99) Creatine Kinase 38 U/L (39-308) Creatine Kinase MB (Mass) 1.0 ng/mL (0.0-3.6) Creatine Kinase MB Relative Index % (0-4) Troponin I Quantitative < 0.017 ng/mL (0.000-0.055) Test 04/19/17 13:53 04/19/17 14:55 04/19/17 16:01 04/19/17 17:04 Glucose (Fingerstick) 212 mg/dL (70-99) 229 mg/dL (70-99) 201 mg/dL (70-99) 172 mg/dL (70-99) Sodium Level 139 mmol/L (136-145) Potassium Level 4.0 mmol/L (3.5-5.1) Chloride Level 106 mmol/L (98-107) Carbon Dioxide Level 19 mmol/L (21-32) Anion Gap 14 (6-14) Blood Urea Nitrogen 27 mg/dL (8-26) Creatinine 1.4 mg/dL (0.7-1.3) Estimated GFR (Cockcroft-Gault) 52.6 Glucose Level 233 mg/dL (70-99) Calcium Level 8.4 mg/dL (8.5-10.1) Phosphorus Level 1.4 mg/dL (2.6-4.7) Magnesium Level 2.2 mg/dL (1.8-2.4) Test 04/19/17 18:00 04/19/17 18:15 04/19/17 19:15 04/19/17 20:08 Creatine Kinase 39 U/L (39-308) Creatine Kinase MB (Mass) 0.8 ng/mL (0.0-3.6) Creatine Kinase MB Relative Index 2.1 % (0-4) Troponin I Quantitative 0.018 ng/mL (0.000-0.055) Glucose (Fingerstick) 163 mg/dL (70-99) 115 mg/dL (70-99) 98 mg/dL (70-99) Test 04/19/17 21:07 04/19/17 22:00 04/19/17 23:02 04/19/17 23:44 Glucose (Fingerstick) 94 mg/dL (70-99) 95 mg/dL (70-99) 98 mg/dL (70-99) 124 mg/dL (70-99) Test 04/20/17 00:01 04/20/17 01:02 04/20/17 02:03 04/20/17 02:49 Sodium Level 144 mmol/L (136-145) Potassium Level 3.2 mmol/L (3.5-5.1) Chloride Level 111 mmol/L (98-107) Carbon Dioxide Level 20 mmol/L (21-32) Anion Gap 13 (6-14) Blood Urea Nitrogen 18 mg/dL (8-26) Creatinine 0.9 mg/dL (0.7-1.3) Estimated GFR (Cockcroft-Gault) 87.6 Glucose Level 128 mg/dL (70-99) Calcium Level 7.9 mg/dL (8.5-10.1) Phosphorus Level 2.7 mg/dL (2.6-4.7) Magnesium Level 2.1 mg/dL (1.8-2.4) Creatine Kinase 40 U/L (39-308) Creatine Kinase MB (Mass) 0.6 ng/mL (0.0-3.6) Creatine Kinase MB Relative Index 1.5 % (0-4) Troponin I Quantitative 0.017 ng/mL (0.000-0.055) Glucose (Fingerstick) 129 mg/dL (70-99) 141 mg/dL (70-99) 148 mg/dL (70-99) Test 04/20/17 03:50 04/20/17 04:43 04/20/17 06:04 04/20/17 06:05 Glucose (Fingerstick) 195 mg/dL (70-99) 186 mg/dL (70-99) 154 mg/dL (70-99) White Blood Count 14.5 x10^3/uL (4.0-11.0) Red Blood Count 3.83 x10^6/uL (4.30-5.70) Hemoglobin 12.7 g/dL (13.0-17.5) Hematocrit 38.5 % (39.0-53.0) Mean Corpuscular Volume 101 fL (79-100) Mean Corpuscular Hemoglobin 33 pg (25-35) Mean Corpuscular Hemoglobin Concent 33 g/dL (31-37) Red Cell Distribution Width 13.1 % (11.5-14.5) Platelet Count 213 x10^3/uL (140-400) Neutrophils (%) (Auto) 85 % (31-73) Lymphocytes (%) (Auto) 9 % (24-48) Monocytes (%) (Auto) 5 % (0-9) Eosinophils (%) (Auto) 0 % (0-3) Basophils (%) (Auto) 1 % (0-3) Neutrophils # (Auto) 12.3 x10^3uL (1.8-7.7) Lymphocytes # (Auto) 1.3 x10^3/uL (1.0-4.8) Monocytes # (Auto) 0.7 x10^3/uL (0.0-1.1) Eosinophils # (Auto) 0.0 x10^3/uL (0.0-0.7) Basophils # (Auto) 0.1 x10^3/uL (0.0-0.2) Sodium Level 144 mmol/L (136-145) Potassium Level 3.6 mmol/L (3.5-5.1) Chloride Level 113 mmol/L (98-107) Carbon Dioxide Level 20 mmol/L (21-32) Anion Gap 11 (6-14) Blood Urea Nitrogen 13 mg/dL (8-26) Creatinine 0.9 mg/dL (0.7-1.3) Estimated GFR (Cockcroft-Gault) 87.6 Glucose Level 160 mg/dL (70-99) Calcium Level 7.6 mg/dL (8.5-10.1) Phosphorus Level 1.1 mg/dL (2.6-4.7) Magnesium Level 1.7 mg/dL (1.8-2.4) Lipase 982 U/L (73-393) Test 04/20/17 07:00 04/20/17 08:12 04/20/17 09:15 04/20/17 11:50 Glucose (Fingerstick) 117 mg/dL (70-99) 172 mg/dL (70-99) 239 mg/dL (70-99) 112 mg/dL (70-99) Sodium Level 143 mmol/L (136-145) Potassium Level 3.3 mmol/L (3.5-5.1) Chloride Level 111 mmol/L (98-107) Carbon Dioxide Level 21 mmol/L (21-32) Anion Gap 11 (6-14) Blood Urea Nitrogen 9 mg/dL (8-26) Creatinine 0.8 mg/dL (0.7-1.3) Estimated GFR (Cockcroft-Gault) 100.4 Glucose Level 121 mg/dL (70-99) Calcium Level 7.8 mg/dL (8.5-10.1) Phosphorus Level 1.8 mg/dL (2.6-4.7) Magnesium Level 2.7 mg/dL (1.8-2.4) Laboratory Tests Test 04/19/17 14:55 04/19/17 16:01 04/19/17 17:04 04/19/17 18:00 Sodium Level 139 mmol/L (136-145) Potassium Level 4.0 mmol/L (3.5-5.1) Chloride Level 106 mmol/L (98-107) Carbon Dioxide Level 19 mmol/L (21-32) Anion Gap 14 (6-14) Blood Urea Nitrogen 27 mg/dL (8-26) Creatinine 1.4 mg/dL (0.7-1.3) Estimated GFR (Cockcroft-Gault) 52.6 Glucose Level 233 mg/dL (70-99) Glucose (Fingerstick) 229 mg/dL (70-99) 201 mg/dL (70-99) 172 mg/dL (70-99) Calcium Level 8.4 mg/dL (8.5-10.1) Phosphorus Level 1.4 mg/dL (2.6-4.7) Magnesium Level 2.2 mg/dL (1.8-2.4) Creatine Kinase 39 U/L (39-308) Creatine Kinase MB (Mass) 0.8 ng/mL (0.0-3.6) Creatine Kinase MB Relative Index 2.1 % (0-4) Troponin I Quantitative 0.018 ng/mL (0.000-0.055) Test 04/19/17 18:15 04/19/17 19:15 04/19/17 20:08 04/19/17 21:07 Glucose (Fingerstick) 163 mg/dL (70-99) 115 mg/dL (70-99) 98 mg/dL (70-99) 94 mg/dL (70-99) Test 04/19/17 22:00 04/19/17 23:02 04/19/17 23:44 04/20/17 00:01 Glucose (Fingerstick) 95 mg/dL (70-99) 98 mg/dL (70-99) 124 mg/dL (70-99) Sodium Level 144 mmol/L (136-145) Potassium Level 3.2 mmol/L (3.5-5.1) Chloride Level 111 mmol/L (98-107) Carbon Dioxide Level 20 mmol/L (21-32) Anion Gap 13 (6-14) Blood Urea Nitrogen 18 mg/dL (8-26) Creatinine 0.9 mg/dL (0.7-1.3) Estimated GFR (Cockcroft-Gault) 87.6 Glucose Level 128 mg/dL (70-99) Calcium Level 7.9 mg/dL (8.5-10.1) Phosphorus Level 2.7 mg/dL (2.6-4.7) Magnesium Level 2.1 mg/dL (1.8-2.4) Creatine Kinase 40 U/L (39-308) Creatine Kinase MB (Mass) 0.6 ng/mL (0.0-3.6) Creatine Kinase MB Relative Index 1.5 % (0-4) Troponin I Quantitative 0.017 ng/mL (0.000-0.055) Test 04/20/17 01:02 04/20/17 02:03 04/20/17 02:49 04/20/17 03:50 Glucose (Fingerstick) 129 mg/dL (70-99) 141 mg/dL (70-99) 148 mg/dL (70-99) 195 mg/dL (70-99) Test 04/20/17 04:43 04/20/17 06:04 04/20/17 06:05 04/20/17 07:00 Glucose (Fingerstick) 186 mg/dL (70-99) 154 mg/dL (70-99) 117 mg/dL (70-99) White Blood Count 14.5 x10^3/uL (4.0-11.0) Red Blood Count 3.83 x10^6/uL (4.30-5.70) Hemoglobin 12.7 g/dL (13.0-17.5) Hematocrit 38.5 % (39.0-53.0) Mean Corpuscular Volume 101 fL (79-100) Mean Corpuscular Hemoglobin 33 pg (25-35) Mean Corpuscular Hemoglobin Concent 33 g/dL (31-37) Red Cell Distribution Width 13.1 % (11.5-14.5) Platelet Count 213 x10^3/uL (140-400) Neutrophils (%) (Auto) 85 % (31-73) Lymphocytes (%) (Auto) 9 % (24-48) Monocytes (%) (Auto) 5 % (0-9) Eosinophils (%) (Auto) 0 % (0-3) Basophils (%) (Auto) 1 % (0-3) Neutrophils # (Auto) 12.3 x10^3uL (1.8-7.7) Lymphocytes # (Auto) 1.3 x10^3/uL (1.0-4.8) Monocytes # (Auto) 0.7 x10^3/uL (0.0-1.1) Eosinophils # (Auto) 0.0 x10^3/uL (0.0-0.7) Basophils # (Auto) 0.1 x10^3/uL (0.0-0.2) Sodium Level 144 mmol/L (136-145) Potassium Level 3.6 mmol/L (3.5-5.1) Chloride Level 113 mmol/L (98-107) Carbon Dioxide Level 20 mmol/L (21-32) Anion Gap 11 (6-14) Blood Urea Nitrogen 13 mg/dL (8-26) Creatinine 0.9 mg/dL (0.7-1.3) Estimated GFR (Cockcroft-Gault) 87.6 Glucose Level 160 mg/dL (70-99) Calcium Level 7.6 mg/dL (8.5-10.1) Phosphorus Level 1.1 mg/dL (2.6-4.7) Magnesium Level 1.7 mg/dL (1.8-2.4) Lipase 982 U/L (73-393) Test 04/20/17 08:12 04/20/17 09:15 04/20/17 11:50 Glucose (Fingerstick) 172 mg/dL (70-99) 239 mg/dL (70-99) 112 mg/dL (70-99) Sodium Level 143 mmol/L (136-145) Potassium Level 3.3 mmol/L (3.5-5.1) Chloride Level 111 mmol/L (98-107) Carbon Dioxide Level 21 mmol/L (21-32) Anion Gap 11 (6-14) Blood Urea Nitrogen 9 mg/dL (8-26) Creatinine 0.8 mg/dL (0.7-1.3) Estimated GFR (Cockcroft-Gault) 100.4 Glucose Level 121 mg/dL (70-99) Calcium Level 7.8 mg/dL (8.5-10.1) Phosphorus Level 1.8 mg/dL (2.6-4.7) Magnesium Level 2.7 mg/dL (1.8-2.4) Brief Hospital Course Mr. Hernandez is a 56 old male admitted overnight to ic[facility] bec of DKA ( 22 units qhs) and alcoholic panc (first epsidoe), lipase 900.s Better with overnight tx, wanted to go home, Tolerated PO diet. 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
[2017-04-20] MEDS ORDERED: INSULIN DETEMIR 300 UNITS/3 ML INSULN.PEN. SQ SCH (21:00)
== END 2017-04-20 14:15 | disposition home or self-care (01) | DRG 637 ==
LOC: 1 WEST ICU 09:21
PROVIDERS: ADMIT Internal Medicine; ATTEND Internal Medicine
DX: E13.10 Other specified diabetes mellitus with ketoacidosis without coma (principal); K85.90 Acute pancreatitis without necrosis or infection, unspecified; N17.0 Acute kidney failure with tubular necrosis; K92.0 Hematemesis; F10.20 Alcohol dependence, uncomplicated; E87.5 Hyperkalemia; E86.0 Dehydration; F17.210 Nicotine dependence, cigarettes, uncomplicated; K59.09 Other constipation; Z79.4 Long term (current) use of insulin; Z83.3 Family history of diabetes mellitus; Z88.8 Allergy status to other drugs, medicaments and biological substances
CPT/HCPCS: 36415; 76700; 80048; 80076; 81001; 82150; 82553; 82805; 82962; 83036; 83690; 83735; 84100; 84484; 85007; 85027; 87641; 93005; C9113; G0481; J1815; J2270; J3475; J3480; J7030; J7042

== ENCOUNTER → 2020-02-15 | Outpatient (CLI) | payer BC ==
[2017-04-20 14:00] VITALS: BP 141/70
[~2020-02-15] MED LIST changes: +ASPI-482 PO
--- NOTE | 2020-02-15 13:44 | KCIC ---
MRI of the cervical spine without contrast 02/15/2020 CLINICAL HISTORY: Neck pain which radiates down the right upper extremity with numbness and weakness. TECHNIQUE: Unenhanced T1-weighted, T2-weighted and inversion recovery sagittal and gradient echo and T2-weighted axial images of the cervical spine were obtained. FINDINGS: Minimal lateral curvature of the cervical spine is seen convex to the left. There is straightening of the normal cervical lordosis. Degenerative signal changes are seen involving all of the disks of the cervical spine. Loss of height of the C6-7 discs is noted. Degenerative signal changes are seen within the marrow surrounding this disc. No area of abnormal signal intensity is seen involving the cervical spinal cord. At the C2-3, C3-4, C4-5 and C5-6 disc spaces there are minimal to mild generalized disc bulges. Degenerative changes are seen involving the uncovertebral and facet joints bilaterally. These findings do not result in significant central spinal canal or neural foraminal stenosis. At the C6-7 disc space there is a moderate generalized disc bulge. This is eccentric to the left. Superimposed on this disc bulge is a central/left paracentral disc osteophyte complex. This measures 4 mm in AP diameter. Degenerative changes are seen involving the uncovertebral and facet joints, left greater than right. These findings efface the anterior CSF resulting in mild left greater than right central spinal canal stenosis without evidence of cord impingement. Mild left greater than right neural foraminal stenosis is seen. At the C7-T1 disc space there is a mild generalized disc bulge. Superimposed on this disc bulge is a right paracentral focal disc herniation. This extrudes superiorly and laterally to the right. It measures 6 mm in AP diameter. Degenerative changes are seen involving the facet joints bilaterally. The disc herniation extends into the right neural foramen and appears to impinge upon the right C8 nerve root within the proximal right neural foramen. Moderate to severe right neural foraminal stenosis is seen. The left neural foramen is patent. IMPRESSION: Degenerative changes are seen throughout the cervical spine. These findings result in mild left greater than right central spinal canal stenosis without evidence of cord impingement at C6-7. Mild left greater than right neural foraminal stenosis is seen at C6-7. At the C7-T1 disc space a right paracentral focal disc herniation is seen which extrudes superiorly and laterally to the right. It extends to the right neural foramen resulting in moderate to severe right neural foraminal stenosis and appears to impinge upon the right C8 nerve root within the right neural foramen. Electronically signed by: Shane Medina MD (02/15/2020 1:42 PM) [id number]
== END | disposition home or self-care (01) ==
LOC: KCIC MRI 12:12
PROVIDERS: ATTEND Physician Assistant
DX: M47.22 Other spondylosis with radiculopathy, cervical region (principal); M48.02 Spinal stenosis, cervical region; M50.23 Other cervical disc displacement, cervicothoracic region; M25.78 Osteophyte, vertebrae
CPT/HCPCS: 72141

== ENCOUNTER → 2020-03-14 | Outpatient (CLI) | payer BC ==
[2017-04-20 14:00] VITALS: BP 141/70
[~2020-03-14] MED LIST changes: +IOHEXOL 180 MG/ML 10 ML VIAL. ONE; +TRAM50TA PO; +methylPREDNISolone ACETATE 40 MG/ML VIAL. ONE; +methylPREDNISolone ACETATE 80 MG/ML VIAL. ONE
--- NOTE | 2020-03-14 12:52 | PAIN ---
DATE OF SERVICE: 03/14/2020 INITIAL CONSULTATION FOR PAIN CLINIC CHIEF COMPLAINT: Neck and right upper extremity pain. HISTORY OF PRESENT ILLNESS: This is a 59-year-old male who presents with history of pain in the base of neck and right upper extremity for about 6 months, worse over the time. Getting worse, but not from any specific injury or accident he is aware of. The patient reports it is just became more noticeable over time without any injury or accident. The patient reports it is getting worse; however, with a stabbing pain in the right upper extremity, shooting and throbbing in the base of the neck, right shoulder, right posterior deltoid, posterior upper arm, forearm, also biceps and anterior forearm to the hand and the fingers with difficulty with fine motor movements and even riding. Filling out his history today, he needed help from our staff to do the paperwork because of the pain in the hand and arm is so significant. The patient reports it awakens him up from sleep at least 8-9/10 times at night, when he rolls on his right side especially. Does not affect the bowel or bladder control or his ability to walk. The patient has had chiropractic treatment this year as well as doing exercise with some help with some decrease in pain, but very minimal. The patient rates the disability rating from 0-10, 10 being the worst, is a 5 with family home responsibilities, 0 with recreation and social activity, 7 with occupation, 10 with sexual behavior, 10 with care and 9 with life support activities. The patient did have MRI scan of the cervical spine showing degenerative changes throughout with mild left greater than right central spinal canal stenosis without evidence of cord impingement at C6-C7 and mild left greater than right neural foraminal stenosis at C5-C7 and C7-T1 with a right paracentral focal disk herniation, which extrudes superiorly and laterally to the right. The patient has had recent evaluation with his neurosurgeon who is considering surgical alternatives, the patient would like some other options as well. The patient reports no loss of motor function of the right upper extremity, but significant fatigability with any repetitive motions, even driving a car with his right arm, reaching over his head with his right hand, any weightbearing or repetitive weightbearing motions on the right. PAST MEDICAL HISTORY: Significant for hearing loss, left ear, type 2 diabetes, cigarette smoking, continues to smoke, history of arthritis. PREVIOUS SURGERY: Include hernia repair x 3. CURRENT MEDICATIONS: Include tramadol, insulin and daily baby aspirins. ALLERGIES: The patient has no known drug allergies. FAMILY HISTORY: Significant for no major medical problems or conditions that he lists. SOCIAL HISTORY: The patient drinks alcohol about 2 drinks a night, does smoke one-half pack of cigarettes, has it for 40 years and continues to smoke. Does not use any illegal, illicit or recreational drugs. He is , lives with his spouse, lives locally in [place], [place]. 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 REVIEW OF SYSTEMS: The patient's review of systems is positive for those items mentioned in history of present illness. All systems reviewed and otherwise negative. It is complete, full and well documented on the patient's chart. PHYSICAL EXAMINATION: VITAL SIGNS: The patient's blood pressure 132/84, pulse 94, respirations 18, temperature is 98.1 degrees Fahrenheit, height is 5 feet 7 inches, weighs 135 pounds. GENERAL: The patient is awake, alert, oriented, appropriate, very pleasant demeanor. HEENT: Head shows normocephalic, atraumatic. Extraocular movements are intact and symmetrical. Oral cavity; mucous membranes moist and pink. Dentition is intact. NECK: Shows anterior throat supple without palpable lymphadenopathy noted. Swallow reflex symmetrical. CHEST: Shows normal on inspection. Breath sounds are clear bilaterally. HEART: Shows S1, S2 clear. No murmurs auscultated. ABDOMEN: Soft, nontender, nondistended. No palpable organomegaly is noted. No rebound or guarding demonstrated. BACK: Shows spine grossly in the midline, normal-appearing cervical lordotic curvature, thoracic kyphotic curvature and lumbar lordotic curvature. Cervical paraspinous muscle shows symmetrical on inspection, on palpation shows some mild tenderness in the low lumbar distribution only in the cervical paraspinous muscles, also superior medial trapezius on the right, but not the left as it is symmetrical; however, without evidence of atrophy, hypertrophy, no trigger points. The patient has good rotational motion of cervical spine, both laterally greater than 45 degrees closer to 90 degrees right and left as full extension, full forward flexion without exacerbation of pain. EXTREMITIES: The patient's upper extremities show deep tendon reflexes at 2+ and the biceps and triceps tendons are equal. Motor exam is approximately 4 on a scale of 5 on the right and 5/5 on the left with biceps, triceps, hand senior software engineer strength, but is consistent right to left with decreased strength on the right side. Peripheral pulses are 2+ radial distribution. No peripheral edema is noted. Shoulder shrug is strong and intact without loss of strength on resistance as is abduction of shoulder to 90 degrees without loss of strength on resistance, mild pain reported at the base of neck and the right shoulder with these maneuvers, but no loss of strength is noted. Upper extremities are warm and dry to touch, equal in color and appearance. SKIN: Shows warm and dry, good turgor. No edema. No sores, rashes or bruising throughout. IMPRESSION: 1. This is a 59-year-old male with approximate 6-month history of increasing pain at base of the neck, right upper extremity in a radicular fashion. 2. MRI scan of cervical spine as noted. 3. Diabetes. 4. Arthritis. 5. Cigarette smoking. PLAN: Options were discussed with the patient including conservative medical managements, physical therapies and interventional techniques. He would like to pursue interventional techniques. We discussed a cervical epidural steroid injection using description as well as anatomical models to describe the procedure. Risks were then discussed including, but not limited to bleeding, infection, possibility of epidural hematoma, subsequent neurological compromise, dural puncture, headaches, spinal cord and/or nerve damage, side effects of steroid medication and poor results regarding pain control. The patient understands and wished to proceed. The patient will return to clinic in approximately 2 weeks for followup, counseled as to return appointment, activity level and side effects to be aware of. DIAGNOSES: Cervical radiculopathy with cervical degenerative disk disease and cervical herniated disk. PROCEDURE: Cervical epidural steroid injection, translaminar approach at C7-T1 level using C-arm fluoroscopic guidance under sterile prep and drape using local anesthetic. MEDICATION INJECTED: A total of 120 mg Depo-Medrol plus 5 mL of preservative-free normal saline and 2 mL of contrast. CONDITION AT DISCHARGE: Stable. The patient tolerated the procedure well, had no complications. VITA MORAES MD DR: VONDA/collette JOB#: [id number] / [id number] LISSETH Howard
== END ==
LOC: PNCL 08:29
PROVIDERS: ATTEND Anesthesiology
DX: M50.123 Cervical disc disorder at C6-C7 level with radiculopathy (principal); E11.9 Type 2 diabetes mellitus without complications; F17.210 Nicotine dependence, cigarettes, uncomplicated; Z79.84 Long term (current) use of oral hypoglycemic drugs; Z98.890 Other specified postprocedural states
CPT/HCPCS: 62321; J1030; J1040; Q9965

== ENCOUNTER → 2020-03-29 | Outpatient (CLI) | payer BC ==
[2017-04-20 14:00] VITALS: BP 141/70
--- NOTE | 2020-03-29 13:49 | PAIN ---
DATE OF SERVICE: 03/29/2020 PROGRESS NOTE FOR PAIN CLINIC DIAGNOSES: Cervical radiculopathy with cervical degenerative disk disease and cervical herniated disk. HISTORY OF PRESENT ILLNESS: The patient is a 59-year-old male who returns for followup status post cervical epidural steroid injection x 1. The patient reports about 60% improvement in the neck and right upper extremity. The patient reports an increased activity with greater ease and comfort. Sleeping better, in night it occasionally wakens him from sleep, but not more than every 6 hours. The patient reports he has been increasing his activity, doing better activity at home, at work and traveling with greater ease and comfort, driving with greater ease. The patient reports his pain is a 7 on a scale of 10 at its worst over the past week, 6 on average and 4 at its least and is a 4 today. The patient reports it is aching, sharp, on and off in intensity, with specific radiation that is into the right upper extremity. The patient reports no loss of motor function, no new bowel or bladder incontinence or other complaints. Describes as aching and sharp in the neck and the right upper extremity. The patient reports no new changes. PHYSICAL EXAMINATION: VITAL SIGNS: The patient's blood pressure 151/80, pulse 80, respirations 18, temperature 98.0 degrees Fahrenheit, height is 5 feet 7 inches, 133 pounds. GENERAL: The patient is awake, alert, oriented, appropriate, very pleasant demeanor. HEENT: Shows normocephalic, atraumatic. Extraocular movements are intact and symmetrical. Oral cavity: Mucous membranes moist and pink. Dentition is intact. NECK: Shows anterior throat supple without palpable lymphadenopathy noted. Swallow reflex symmetrical. CHEST: Shows normal on inspection. Breath sounds are clear bilaterally. HEART: Shows S1, S2 clear. ABDOMEN: Soft, nontender, nondistended. BACK: Shows spine grossly in the midline. Cervical paraspinous muscle shows symmetrical on inspection with normal cervical lordotic curvature. On palpation shows some moderate tenderness inferiorly, more on the right than the left in the inferior aspect of the cervical paraspinous muscles, also superior medial trapezius, but without specific radiation, no trigger points. The patient has good rotational motion of cervical spine, both laterally greater than 45 degrees closer to 90 degrees right and left as well as full extension, full forward flexion without significant increase in pain. EXTREMITIES: Upper extremities show deep tendon reflexes 2+ in the biceps, triceps tendons. Motor exam is strong with approximately 4 on a scale of 5 on the right with fleet driver strength 5/5 on the left. Bicep and tricep flexion is 5/5 and equal bilaterally. Peripheral pulses are 2+ radial. No peripheral edema is noted. Options were discussed with the patient. The patient's old chart was reviewed as his current medication regimen updated. Current review of systems updated today as well. We will proceed with a second in a series of cervical epidural steroid injection today with fluoroscopic guidance. Risks were again discussed including, but not limited to bleeding, infection, possibility of epidural hematoma, subsequent neurological compromise, dural puncture, headaches, spinal cord and/or nerve damage, side effects of steroid medication and poor results regarding pain control. The patient understands and wished to proceed. The patient will return to clinic in approximately 2 weeks for followup. She was counseled on return appointment, activity level and side effects to be aware of. DIAGNOSES: Cervical radiculopathy with cervical degenerative disk disease and cervical herniated disk. PROCEDURE: Cervical epidural steroid injection, translaminar approach at the C7-T1 level using C-arm fluoroscopic guidance under sterile prep and drape using local anesthetic. MEDICATION INJECTED: A total of 120 mg Depo-Medrol plus 5 mL of preservative-free normal saline and 2 mL of contrast. CONDITION AT DISCHARGE: Stable. The patient tolerated procedure well, had no complications. VITA MORAES MD DR: VONDA/collette JOB#: [id number] / [id number]
== END ==
LOC: PNCL 07:57
PROVIDERS: ATTEND Anesthesiology
DX: M50.123 Cervical disc disorder at C6-C7 level with radiculopathy (principal)
CPT/HCPCS: 62321; J1030; J1040; Q9965